=== PATIENT | female | born 1985 | race Caucasian/White ===

== ENCOUNTER → 2016-11-10 | Outpatient (CLI) | payer OTHER ==
[~2016-11-10] MED LIST: CEFD300C2 PO; DHA PO; PRENTAB26 PO; SLOW FE PO
== END | disposition home or self-care (01) ==
LOC: C.PAPS 09:11
PROVIDERS: ATTEND Obstetrics & Gynecology
DX: Z12.4 Encounter for screening for malignant neoplasm of cervix (principal)

== ENCOUNTER 2017-03-01 06:27 | Emergency (ER) | payer OTHER ==
[~2017-03-01] VITALS: Ht 149.9 cm; Wt 74.3 kg
[~2017-03-01 06:27] MED LIST changes: -CEFD300C2 PO
[2017-03-01 06:33] VITALS: TEMP 37; Ht 149.9 cm; Wt 74.3 kg
[2017-03-01] MEDS ORDERED: KETOROLAC TROMETHAMINE 30 MG/ML VIAL IV STA (06:53)
[2017-03-01] MEDS ORDERED: SODIUM CHLORIDE 0.9% 1000ML 500 ML IV STA (06:53)
[2017-03-01] MEDS ORDERED: ONDANSETRON INJ 2 MG/ML 2 ML VIAL IV STA (06:53)
--- NOTE | 2017-03-01 07:00 | EMERGENCY ROOM VISIT NOTE ---
History Report prepared by Jackie: Vickie Garcia Under the Supervision of: Dr. Jeb Tobias M.D. First contact with patient: 06:45 Chief Complaint: FLANK PAIN Stated Complaint: LWR BACK PAIN,CRAMPING,ITCHING LIKE INFECTION,CHIL History of Present Illness The patient is a 32 year old female who presents to the Emergency Room with complaints of right flank pain that began around 0300 this morning and continued to worsen. She currently rates her discomfort as a 6/10 in severity. The patient states that last night she began noticing vaginal itching, stating that she thought she was developing an early yeast infection. She states that she has had no vaginal discharge. The patient states that she continued with soreness and cramping to her right lower back and states that it began to radiate into her right side of her abdomen. She states that she then began with nausea and chills, but denies any urinary symptoms. The patient denies any personal or family history of kidney stones or infections. She reports a past medical history of a salivary gland infection 10 years ago. The patient denies any history of diabetes or lung disease, but reports a family history of diabetes. She denies any history of ovarian cysts. The patient states that her last normal menstrual cycle was last week, noting that it was the worst cramping she has ever had. She states that she has been off control since October. The patient denies any history of ovarian cysts. Source of History: patient Onset: 0300 this morning Position: other (right flank) Symptom Intensity: 6/10 Quality: cramping Timing: worsening, other (persistent) Associated Symptoms: + chills, + nausea Review of Systems See HPI for pertinent positives & negatives. A total of 10 systems reviewed and were otherwise negative. Past Medical & Surgical Medical Problems: (1) Salivary gland infection Family History Diabetes mellitus Social History Smoking Status: Never Smoker Marital Status: Housing Status: lives with significant other Occupation Status: employed Current/Historical Medications Scheduled Cefdinir (Omnicef), 300 MG PO Q12H Multivit/Min/Iron/Fol Ac/Pren ( Vitamin), 1 TAB PO DAILY Allergies Coded Allergies: No Known Allergies (Unverified , 03/01/17) Physical Exam Vital Signs Date Time Temp Pulse Resp B/P (MAP) Pulse Ox O2 Delivery O2 Flow Rate FiO2 03/01/17 09:16 82 18 135/88 96 03/01/17 06:33 37.0 79 18 164/104 99 Room Air Physical Exam GENERAL: Patient is in no acute distress. HEENT: No acute trauma, normocephalic atraumatic, mucous membranes moist, no nasal congestion, no scleral icterus. NECK: No stridor, no adenopathy, no meningismus, trachea is midline. LUNGS: Clear to auscultation bilaterally, no wheeze, no rhonchi, breath sounds equal. HEART: Without murmurs gallops or rubs, regular rate and rhythm. ABDOMEN: Soft, Tender along the entire right side, bowel sounds positive, no hernias, no peritonitis. BACK: Mild right flank discomfort with percussion EXTREMITIES: No cyanosis or edema, full range of motion of all the joints without pain or difficulty, no signs for acute trauma. NEUROLOGIC: Oriented x 3, no acute motor or sensory deficits, no focal weakness. SKIN: No rash, no jaundice, no diaphoresis. Medical Decision & Procedures ER Provider Diagnostic Interpretation: CT results as stated below per my review and radiologist interpretation: ABD/PELVIS WITHOUT FOR STONE HISTORY: 32 years-old Female EVALUATE FLANK PAIN/HEMATURIA acute right-sided flank pain with hematuria. Initial exam. COMPARISON: None available. TECHNIQUE: Multiple axial CT images of the abdomen and pelvis were obtained without IV contrast. A dose lowering technique was used consistent with the principals of ALARA. FINDINGS: Lung bases are generally clear. There is no pneumoperitoneum identified. The imaged inferior cardiac chambers are unremarkable. The liver, spleen, pancreas, gallbladder and adrenal glands are within normal limits. There is mild dilation with surrounding inflammatory stranding of the right ureter without significant right-sided hydronephrosis identified. No obstructing stone or mass is seen. Left kidney, left ureter, urinary bladder and adnexa are unremarkable. The abdominal aorta is normal in both course and caliber. There is no bulky retroperitoneal adenopathy. There is no bowel obstruction or focal bowel wall thickening identified. The colon and appendix are within normal limits. Soft tissues are unremarkable. Bones appear intact. IMPRESSION: 1. Mild dilation with surrounding inflammatory stranding of the right ureter without obstructing stone identified. Findings may be secondary to recently passed stone or ascending infection. 2. Normal CT appearance of the appendix. The above report was generated using voice recognition software. It may contain grammatical, syntax or spelling errors. Electronically signed by: Duke Winkler M.D. 03/01/2017 7:46 AM Dictated Date/Time: 03/01/2017 7:40 AM Laboratory Results 03/01/17 07:05 Red Blood Count 4.71, Mean Corpuscular Volume 85.6, Mean Corpuscular Hemoglobin 29.5, Mean Corpuscular Hemoglobin Concent 34.5, Mean Platelet Volume 8.5, Neutrophils (%) (Auto) 71.5, Lymphocytes (%) (Auto) 21.6, Monocytes (%) (Auto) 4.8, Eosinophils (%) (Auto) 1.7, Basophils (%) (Auto) 0.2, Neutrophils # (Auto) 7.00, Lymphocytes # (Auto) 2.11, Monocytes # (Auto) 0.47, Eosinophils # (Auto) 0.17, Basophils # (Auto) 0.02 03/01/17 07:05 Test 03/01/17 06:40 03/01/17 07:05 Urine Color YELLOW Urine Appearance CLOUDY (CLEAR) Urine pH 6.5 (4.5-7.5) Urine Specific [place] 1.018 (1.000-1.030) Urine Protein 2+ (NEG) Urine Glucose (UA) NEG (NEG) Urine Ketones NEG (NEG) Urine Occult Blood 2+ (NEG) Urine Nitrite POS (NEG) Urine Bilirubin NEG (NEG) Urine Urobilinogen NEG (NEG) Urine Leukocyte Esterase LARGE (NEG) Urine WBC (Auto) >30 /hpf (0-5) Urine RBC (Auto) >30 /hpf (0-4) Urine Hyaline Casts (Auto) 1-5 /lpf (0-5) Urine Epithelial Cells (Auto) >30 /lpf (0-5) Urine Bacteria (Auto) 2+ (NEG) White Blood Count 9.79 K/uL (4.8-10.8) Red Blood Count 4.71 M/uL (4.2-5.4) Hemoglobin 13.9 g/dL (12.0-16.0) Hematocrit 40.3 % (37-47) Mean Corpuscular Volume 85.6 fL (80-100) Mean Corpuscular Hemoglobin 29.5 pg (25-34) Mean Corpuscular Hemoglobin Concent 34.5 g/dl (32-36) Platelet Count 219 K/uL (130-400) Mean Platelet Volume 8.5 fL (7.4-10.4) Neutrophils (%) (Auto) 71.5 % Lymphocytes (%) (Auto) 21.6 % Monocytes (%) (Auto) 4.8 % Eosinophils (%) (Auto) 1.7 % Basophils (%) (Auto) 0.2 % Neutrophils # (Auto) 7.00 K/uL (1.4-6.5) Lymphocytes # (Auto) 2.11 K/uL (1.2-3.4) Monocytes # (Auto) 0.47 K/uL (0.11-0.59) Eosinophils # (Auto) 0.17 K/uL (0-0.5) Basophils # (Auto) 0.02 K/uL (0-0.2) RDW Standard Deviation 39.9 fL (36.4-46.3) RDW Coefficient of Variation 12.7 % (11.5-14.5) Immature Granulocyte % (Auto) 0.2 % Immature Granulocyte # (Auto) 0.02 K/uL (0.00-0.02) Anion Gap 10.0 mmol/L (3-11) Est Creatinine Clear Calc Drug Dose 125.7 ml/min Estimated GFR () 143.2 Estimated GFR (Non- 123.5 BUN/Creatinine Ratio 16.1 (10-20) Calcium Level 9.1 mg/dl (8.5-10.1) Total Bilirubin 0.5 mg/dl (0.2-1) Aspartate Amino Transf (AST/SGOT) 19 U/L (15-37) Alanine Aminotransferase (ALT/SGPT) 22 U/L (12-78) Alkaline Phosphatase 53 U/L (45-117) Total Protein 7.6 gm/dl (6.4-8.2) Albumin 3.8 gm/dl (3.4-5.0) Globulin 3.8 gm/dl (2.5-4.0) Albumin/Globulin Ratio 1.0 (0.9-2) Lipase 86 U/L (73-393) Human Chorionic Gonadotropin, Qual NEG (NEG) Laboratory results reviewed by me. Medications Administered Medications (Trade) Dose Ordered Sig/Felicita Route Start Time Stop Time Status Last Admin Dose Admin Sodium Chloride 500 ml @ 999 mls/hr Q31M STAT IV 03/01/17 06:53 03/01/17 07:23 DC 03/01/17 06:53 999 MLS/HR Ondansetron HCl (Zofran Inj) 4 mg NOW STAT IV 03/01/17 06:53 03/01/17 06:54 DC 03/01/17 07:12 4 MG Ketorolac Tromethamine (Toradol Inj) 30 mg NOW STAT IV 03/01/17 06:53 03/01/17 06:54 DC 03/01/17 07:12 30 MG Ceftriaxone Sodium (Rocephin Inj) 1 gm NOW STAT IV 03/01/17 07:24 03/01/17 07:25 DC 03/01/17 07:29 1 GM ED Course 0649: The patient was evaluated in room B3B. A complete history and physical exam was performed. 0653: Ordered Toradol Inj 30 mg IV, Zofran Inj 4 mg IV, Sodium Chloride 500 ml @ 999 mls/hr IV. 0724: Ordered Rocephin Inj 1 gm IV. 0822: I reevaluated the patient and she is resting comfortably. I discussed the exam findings with her and I discussed the treatment plan. She verbalized complete understanding and agreement. She is ready to go home. Medical Decision The patient is a 32 year old female who presents to the ED with complaints of right flank pain. Differential diagnoses considered include pyelonephritis, ovarian cyst, appendicitis, pancreatitis, biliary colic, renal colic, , musculoskeletal pain, renal failure. There is no leukocytosis or concerning anemia. No significant electrolyte abnormality, kidney failure or hepatitis. There is no pancreatitis. Urinalysis shows evidence for infection, urine culture is pending. testing is negative. Abdominal and pelvis CT suggests a possible pyelonephritis. The patient received IV saline, IV Toradol and IV Zofran, she was given IV ceftriaxone. The patient is doing well. She is being discharged home on antibiotics for her pyelonephritis. She should return if worsening. Medication Reconcilliation Current Medication List: was personally reviewed by me Impression Primary Impression: Right flank pain Additional Impression: Pyelonephritis Scribe Attestation The scribe's documentation has been prepared under my direction and personally reviewed by me in its entirety. I confirm that the note above accurately reflects all work, treatment, procedures, and medical decision making performed by me. Departure Information Dispostion Home / Self-Care Prescriptions Cefdinir (OMNICEF) 300 Mg Cap 300 MG PO Q12H for 10 Days, #20 CAP Prov: Jeb Tobias M.D. 03/01/17 Referrals Chaz Bryson M.D. (PCP) Forms HOME CARE DOCUMENTATION FORM, IMPORTANT VISIT INFORMATION Patient Instructions My [facility] Additional Instructions fluids rest motrin and or tylenol for pain omnicef 2x per day for 10 days return for vomiting or if worsening see edward wong for a recheck this week Problem Qualifiers
[2017-03-01 07:13] LABS: URINE APPEARANCE CLOUDY (CLEAR); URINE BILIRUBIN NEG (NEG); URINE COLOR YELLOW; URINE EPITHELIAL CELL AUTO >30 /lpf (0-5); URINE NITRITE POS (NEG); URINE PH 6.5 (4.5-7.5); URINE SPECIFIC GRAVITY 1.018 (1.000-1.030); UROBILINOGEN NEG (NEG); ZZUR CULT IF INDIC CLEAN CATCH YES
[2017-03-01 07:16] LABS: BASO % 0.2 %; BASO ABS # 0.02 K/uL (0-0.2); COMPLETE YES; EOS % 1.7 %; HEMATOCRIT 40.3 % (37-47); IG% 0.2 %; LYMPH % 21.6 %; LYMPH ABS # 2.11 K/uL (1.2-3.4); MEAN CELL VOLUME 85.6 fL (80-100); MEAN CORPUSCULAR HEMOGLOBIN 29.5 pg (25-34); MEAN CORPUSCULAR HGB CONC 34.5 g/dl (32-36); MEAN PLATELET VOLUME 8.5 fL (7.4-10.4); MONO % 4.8 %; NEUT % 71.5 %; PLATELET COUNT 219 K/uL (130-400); RED BLOOD COUNT 4.71 M/uL (4.2-5.4); WHITE BLOOD COUNT 9.79 K/uL (4.8-10.8)
[2017-03-01 07:18] LABS: MANUAL MICROSCOPIC REQUIRED? NO; REVIEW REQ? NO
[2017-03-01] MEDS ORDERED: CEFTRIAXONE SOD INJ 1 GM ADDVIAL IV STA (07:24)
[2017-03-01 07:35] LABS: BUN/CREATININE RATIO 16.1 (10-20); CALCIUM 9.1 mg/dl (8.5-10.1); CREATININE 0.57 mg/dl (0.60-1.20); POTASSIUM 3.4 mmol/L (3.5-5.1)
[2017-03-01 07:39] LABS: PREG INTERNAL NEGATIVE QC NEG CLEAR BACKGROUND; PREG INTERNAL POSITIVE QC POS CONTROL LINE
--- NOTE | 2017-03-01 07:47 | DIAGNOSTIC IMAGING REPORT ---
ABD/PELVIS WITHOUT FOR STONE HISTORY: 32 years-old Female EVALUATE FLANK PAIN/HEMATURIA acute right-sided flank pain with hematuria. Initial exam. COMPARISON: None available. TECHNIQUE: Multiple axial CT images of the abdomen and pelvis were obtained without IV contrast. A dose lowering technique was used consistent with the principals of JUDITH. FINDINGS: Lung bases are generally clear. There is no pneumoperitoneum identified. The imaged inferior cardiac chambers are unremarkable. The liver, spleen, pancreas, gallbladder and adrenal glands are within normal limits. There is mild dilation with surrounding inflammatory stranding of the right ureter without significant right-sided hydronephrosis identified. No obstructing stone or mass is seen. Left kidney, left ureter, urinary bladder and adnexa are unremarkable. The abdominal aorta is normal in both course and caliber. There is no bulky retroperitoneal adenopathy. There is no bowel obstruction or focal bowel wall thickening identified. The colon and appendix are within normal limits. Soft tissues are unremarkable. Bones appear intact. IMPRESSION: 1. Mild dilation with surrounding inflammatory stranding of the right ureter without obstructing stone identified. Findings may be secondary to recently passed stone or ascending infection. 2. Normal CT appearance of the appendix. The above report was generated using voice recognition software. It may contain grammatical, syntax or spelling errors. Electronically signed by: Duke Winkler M.D. 03/01/2017 7:46 AM Dictated Date/Time: 03/01/2017 7:40 AM
[2017-03-01] MEDS ORDERED: CEFD300C2 PO (08:26)
[2017-03-01 09:16] VITALS: BP 135/88; PULSE 82; O2SAT 96
--- NOTE | 2017-03-03 12:27 | Pharmacy Progress Note ---
ED Pharmacist Culture FollowUp Date of Service: Mar 03, 2017. Patient was sent home with a prescription for Cefdinir 300mg PO BID x 10 days for pyelonephritis, which should cover the e coli growing from the patient's URINE culture.
== END 2017-03-01 09:18 | disposition home or self-care (01) ==
LOC: C.EDB 06:28
DX: N12 Tubulo-interstitial nephritis, not specified as acute or chronic (principal); R10.9 Unspecified abdominal pain; M54.5 Low back pain; L29.2 Pruritus vulvae

== ENCOUNTER 2020-02-11 07:53 | Inpatient (IN) ==
[2020-02-11] MEDS ORDERED: OXYTOCIN 30 UNITS/500 ML BAG IV PRN ×2 (08:09→08:10)
[2020-02-11 08:39] LABS: Hematocrit (blood only) 34.4 % (37-47); Hemoglobin 11.7 g/dL (12.0-16.0); Mean Corpuscular Hemoglobin 28.1 pg (25-34); Mean Corpuscular Volume 82.5 fL (80-100); Mean Platelet Volume 9.4 fL (7.4-10.4); Platelet Count 208 K/uL (130-400); RDW Coefficient of Variation 13.7 % (11.5-14.5); Red Blood Count 4.17 M/uL (4.2-5.4); White Blood Count 10.39 K/uL (4.8-10.8)
[2020-02-11] MEDS: LACTATED RINGER'S 1,000 ML IV PRN ×3 (08:55→22:10)
[2020-02-11 09:15] LABS: Albumin Level 2.4 gm/dl (3.4-5.0); BUN Creatinine Ratio 16.9 (10-20); Calcium 9.1 mg/dl (8.5-10.1); Est GFR (African American) 148.3; Potassium 3.6 mmol/L (3.5-5.1)
[2020-02-11 09:18] LABS: Albumin Globulin Ratio 0.6 (0.9-2); Bilirubin,Total 0.2 mg/dl (0.2-1); Total Protein 6.4 gm/dl (6.4-8.2)
--- NOTE | 2020-02-11 09:25 | Medical Student H&P ---
Date of Service February 11, 2020 Assessment & Plan (1) : Induction using pitocin. Patient elected to receive an epidural for pain management. Artificial rupture of membranes would be performed via amniotomy. Category I (2) Insulin controlled gestational diabetes mellitus (GDM) during , antepartum: Blood sugars would be checked hourly throughout the course of labor. (3) Encounter for supervision of normal in multigravida: Patient would be regularly monitored throughout the course of her labor and delivery. Admission and Anticipated Discharge Date Admission Date: February 11, 2020 History of Present Illness Chief Complaint: Patient is presenting for a scheduled induction and delivery. Primary Care Provider: Patient is 35 year old female currently at 40 weeks of estimated gestational age by last menstrual period consistent with first trimester ultrasound presenting for a scheduled induction and delivery due to insulin dependent gestational diabetes mellitus. She states that her course has been generally uncomplicated so far with the exception of a diagnosis of gestational diabetes mellitus for which she takes an evening dose of insulin. Patient had an elevated fasting glucose as well as a positive 1-hour and 2-hour glucose test at 16 weeks. Patient has received appropriate immunizations for her chronological age and her current Group B strep status is negative. testing for HIV, Hep B surface antigen, chlamydia, gonorrhea and syphilis were negative. Patient had a positive rubella IgG titer. Patient's blood type is A positive. Patient has received 2 COVID-19 tests which have both been negative. Second trimester quad test showed no abnormalities. Patient is currently experiencing intermittent contractions and can feel movement but denies any bleeding of leaking of fluid. Patient will undergo an induced delivery and opted to receive an epidural block for pain management. Allergies Allergy/AdvReac Type Severity Reaction Status Date / Time No Known Allergies Allergy Verified 02/08/20 13:34 Home Medications Home Medications Medication Instructions Recorded Confirmed Type prenat.vits,ijeoma,lho-eebd-ijbes 1 tab PO DAILY 07/09/19 02/11/20 History acetone (urine) test #50 ea 09/18/19 02/08/20 Rx blood sugar diagnostic #150 ea 09/18/19 02/08/20 Rx blood-glucose meter #1 ea 09/18/19 02/08/20 Rx lancets 33 gauge #150 ea 09/18/19 02/08/20 Rx pen needle, diabetic 32 gauge x #50 ea 12/11/19 02/08/20 Rx " insulin NPH isoph U-100 human 100 30 unit SQ QPM #15 ml 01/11/20 02/11/20 Rx unit/mL (3 mL) subcutaneous pen cetirizine [Zyrtec] 10 mg PO DAILY 02/11/20 02/11/20 History famotidine [Pepcid AC] 10 mg PO DAILY PRN 02/11/20 02/11/20 History fluticasone propionate [Flonase] 1 spray INTRANASAL DAILY PRN 02/11/20 02/11/20 History Patient History Medical History (Updated 02/11/20 @ 14:29 by Mariah Moya MD, FACOG) Diet controlled gestational diabetes mellitus (GDM), antepartum Eczema Fibroids History of chicken pox Surgical History History of open heart surgery ASD repair 1990 S/P wisdom tooth extraction Family History Mother Diabetes Hypertension Social History Smoking Status: Former smoker Smoking End Date: 1 year ago; Hx Alcohol Use: No Hx Substance Use: No Preferred Language: Yakut Communication Ability: Effective Clinical Team Lead Required: No Beliefs That Will Affect Care: None marital status: marital status details: Pierre Kelly (35) [phone] Current Living Situation: Spouse Current Living Situation Comment: lives with spouse, daughter, dogs 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 OB History Patients has had 3 pregnancies. G1- resulted in an induced . G2- resulted in an term delivery of a 7lb girl via spontaenous vaginal delivery. course was complicated by oligohydraminos. Daughter had an ASD which spontaneously resolved on 3 days after delivery. 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 Her last pap smear done in November 2018 which showed benign findings. Patient has no history of abnormal pap smears or sexually transmitted diseases. Review of Systems Patient appears in no acute distress and is comfortable in her bed. No shortness of breath Additional Comments: No chest pain or palpitations. Patient states experience some mild leg swelling during the . Patient states experiencing mild acid reflux after meals on some occasions. No abdominal pains or change in her stool quality/frequency. Patients states experiencing mild itching due to her seasonal eczema which has been resolved since switching bathing soap. Physical Exam Constitutional: WD/WN, vitals as above Patient appears comfortable and in no acute distress Neck: normal visual inspection Respiratory: normal respiratory effort, lungs clear to auscultation Auscultation: lungs clear to auscultation bilaterally Cardiovascular: Rate/Rhythm: regular rate and regular rhythm Heart Sounds: normal S1 and normal S2 Extremities: + pedal edema (+1, bilateral edema up to the ankles. ) Gastrointestinal (Abdomen): non-tender Psychiatric: A+Ox3, euthymic affect Genitourinary: Manual OB Exam: + cervical dilation 3 cm, + cervical effacement 50% and + station -[address] Mariah Moya Monitoring External Monitor EFM--baseline 150-155 bpm, moderate variability, presence of accelerations and absence of late or variable decelerations. Tocodynamometer Rare contractions Results & Data ([facility]) Vital Signs (Past 12 Hours) Vital Signs Temp Pulse Resp BP 02/11/20 08:33 82 196/88 H 02/11/20 08:32 82 208/101 H 02/11/20 08:16 80 180/89 H 02/11/20 08:11 37.0 C 80 20 180/89 H 02/11/20 07:59 73 165/77 H
[2020-02-11] MEDS ORDERED: LABETALOL HCL IV 5 MG/ML 20ML IV STA (10:16)
--- NOTE | 2020-02-11 10:21 | Communication Note ---
Date of Service: February 11, 2020 Repeat blood pressure is 182/80. Patient has no s/s of pet, labs are all normal, urine dips negative. The only abnl is blood pressure. Plan to treat with one dose of IV labetolol. If that takes care of it, will just monitor. If continues to have elevated blood pressures, will probably need to start mag for ghtn. Will continue to monitor blood sugars and blood pressures closely. fetus categoyr one.
[2020-02-11] MEDS ORDERED: MAG SULFATE 6GM BOLUS FROM BAG IV ONE (13:10)
[2020-02-11] MEDS: MAGNESIUM SULFATE / WTR 40 GM/1,000 ML BAG IV SCH (13:31)
--- NOTE | 2020-02-11 14:21 | History & Physical Report ---
Date of Service February 11, 2020 Assessment & Plan (1) Insulin controlled gestational diabetes mellitus (GDM) during , antepartum: Plan to check blood sugars hourly to q 2 hrs. Plan to keep bs 70-120 and add insulin or D5 if needed. (2) Gestational hypertension without significant proteinuria during in third trimester, antepartum: Developed elevated blood pressures while watching today. this is the first time the pressure has been elevated. Labs are all normal. NO s/s of PET. Pressures as high as 180s/90s. Gave one dose of labetolol and had a bit of response but short-lived. Plan to start Magnesium prophylaxis for seizure prevention. Will continue to watch pressures closely. Labetolol of needed. Plan pitocin induction. Arom as indicated. epidural on demand. Fetus category one. Anticipate . Admission and Anticipated Discharge Date Admission Date: February 11, 2020 History of Present Illness Chief Complaint: induction Primary Care Provider: NO PCP (late entry) Patient is a who presents to labor and delivery for induction of labor at 40 weeks by lmp and first trimester ultrasound for insulin requiring gdm. GDM diagnosed at 16 weeks. Taking insulin at night. Last US at 36 weeks showed efw 21% and AC 34%. Patient has a hx of cardiac anomaly that was repaired, ASD. echo normal. labs--A+/ab-/ri/rprnr/hepb-/hiv-/gc/ct-/16 week gtt 155/ failed 2 hr gtt/ neg QS, gbs neg, covid neg 02/04. Allergies Allergy/AdvReac Type Severity Reaction Status Date / Time No Known Allergies Allergy Verified 02/08/20 13:34 Home Medications Home Medications Medication Instructions Recorded Confirmed Type prenat.vits,ijeoma,dbp-gpmz-hjqdn 1 tab PO DAILY 07/09/19 02/11/20 History acetone (urine) test #50 ea 09/18/19 02/08/20 Rx blood sugar diagnostic #150 ea 09/18/19 02/08/20 Rx blood-glucose meter #1 ea 09/18/19 02/08/20 Rx lancets 33 gauge #150 ea 09/18/19 02/08/20 Rx pen needle, diabetic 32 gauge x #50 ea 12/11/19 02/08/20 Rx 5/32" insulin NPH isoph U-100 human 100 30 unit SQ QPM #15 ml 01/11/20 02/11/20 Rx unit/mL (3 mL) subcutaneous pen cetirizine [Zyrtec] 10 mg PO DAILY 02/11/20 02/11/20 History famotidine [Pepcid AC] 10 mg PO DAILY PRN 02/11/20 02/11/20 History fluticasone propionate [Flonase] 1 spray INTRANASAL DAILY PRN 02/11/20 02/11/20 History Patient History Medical History Diet controlled gestational diabetes mellitus (GDM), antepartum Eczema Fibroids History of chicken pox Surgical History History of open heart surgery ASD repair 1990 S/P wisdom tooth extraction Family History Mother Diabetes Hypertension Social History Smoking Status: Former smoker Smoking End Date: 1 year ago; Hx Alcohol Use: No Hx Substance Use: No Preferred Language: Angolan Communication Ability: Effective Surgical Device Sales Representative Required: No Beliefs That Will Affect Care: None marital status: marital status details: Pierre Kelly (35) [phone] Current Living Situation: Spouse Current Living Situation Comment: lives with spouse, daughter, dogs 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[employer] Other Information That Helps Us Care for You: No Feels Safe at Home: Yes Safety Concerns: Feels Safe At This Time OB History g1--01/02, eab g2--, 40 weeks, 7#6oz, female, 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 Results & Data ([facility]) Vital Signs (Past 12 Hours) Vital Signs Temp Pulse Resp BP Pulse Ox 02/11/20 14:16 79 97 02/11/20 14:13 79 177/85 H 02/11/20 14:11 79 98 02/11/20 13:58 76 158/74 H 02/11/20 13:57 79 97 02/11/20 13:52 78 128/57 L 96 02/11/20 13:47 79 131/61 96 02/11/20 13:42 85 97 02/11/20 13:41 91 H 136/68 02/11/20 13:37 83 97 02/11/20 13:33 78 158/80 H 02/11/20 13:29 75 186/86 H 02/11/20 13:24 74 188/80 H 02/11/20 13:18 76 158/78 H 02/11/20 13:15 92 H 189/94 H 02/11/20 13:03 65 175/89 H 02/11/20 12:58 77 152/71 H 02/11/20 12:52 80 145/68 H 02/11/20 12:48 70 147/65 H 02/11/20 12:42 84 135/68 02/11/20 12:39 81 136/70 02/11/20 12:36 85 137/72 02/11/20 12:33 77 139/67 02/11/20 12:30 79 152/73 H 02/11/20 12:22 71 170/86 H 02/11/20 12:16 73 185/86 H 02/11/20 11:41 68 167/82 H 02/11/20 11:08 67 163/77 H 02/11/20 11:06 75 192/95 H 02/11/20 10:22 55 L 157/74 H 02/11/20 10:14 69 182/80 H 02/11/20 09:18 70 164/81 H 02/11/20 08:33 82 196/88 H 02/11/20 08:32 82 208/101 H 02/11/20 08:16 80 180/89 H 02/11/20 08:11 37.0 C 80 20 180/89 H 02/11/20 07:59 73 165/77 H Coding Level of Care Code None Diagnoses Insulin controlled gestational diabetes mellitus (GDM) during , antepartum O24.414 Gestational hypertension without significant proteinuria during in third trimester, antepartum O13.3
[2020-02-11] MEDS ORDERED: BUPIVACAINE 0.25% 30 ML VIAL ONE ×2 (15:15→21:35)
[2020-02-11] MEDS ORDERED: ePHEDrine sulfate 50 MG/ML AMP ONE (15:15)
[2020-02-11] MEDS ORDERED: fentaNYL citrate 100 MCG/2 ML VIAL ONE ×2 (15:15→21:51)
[2020-02-11] MEDS ORDERED: fentaNYL 2MCG/ML ROPIV 1.25MG/ML 100 ML BAG EPI ONE (15:16)
[2020-02-11] MEDS ORDERED: fentaNYL 2MCG/ML ROPIV 1.25MG/ML 100 ML BAG EPI PRN (15:43)
[2020-02-11] MEDS ORDERED: ePHEDrine sulfate 50 MG/ML AMP IV PRN (15:43)
[2020-02-11] MEDS ORDERED: NALOXONE HCL 0.4 MG/1 ML VIAL/CARP IV PRN (15:43)
[2020-02-11] MEDS ORDERED: DiphenhydrAMINE HCL 50 MG/ML VIAL IV PRN (15:43)
[2020-02-11] MEDS ORDERED: NALOXONE HCL 1 MG in SODIUM CHLORIDE 0.9% 1000ML 1,000 ML IV PRN (15:43)
[2020-02-11] MEDS ORDERED: ONDANSETRON INJ 2 MG/ML 2 ML VIAL IV PRN (15:43)
--- NOTE | 2020-02-11 15:43 | Anesthesiology Consultation ---
Date of Service February 11, 2020 Assessment & Plan (1) Encounter for pre-operative examination: Chart Review Chart Review: Patient NOT seen in Pre Admission Testing and Acceptable Risk for Labor Epidural Consults Requested none ASA ASA3 Proposed Anesthesia Anesthesia Type: Labor Epidural Risk / Benefits Reviewed With: PT / POA / Parent / Guardian, Accepts Plan and Informed Consent Obtained History Height/Weight Height: 5 ft Weight: 86.183 kg Allergies Allergy/AdvReac Type Severity Reaction Status Date / Time No Known Allergies Allergy Verified 02/08/20 13:34 Medications Home Medications Medication Instructions Recorded Confirmed Last Taken prenat.vits,ijeoma,ltq-jqrz-sodzy 1 tab PO DAILY 07/09/19 02/11/20 02/10/20 22:30 acetone (urine) test #50 ea 09/18/19 02/08/20 Unknown blood sugar diagnostic #150 ea 09/18/19 02/08/20 Unknown blood-glucose meter #1 ea 09/18/19 02/08/20 Unknown lancets 33 gauge #150 ea 09/18/19 02/08/20 Unknown pen needle, diabetic 32 gauge x #50 ea 12/11/19 02/08/20 Unknown 5/32" insulin NPH isoph U-100 human 100 30 unit SQ QPM #15 ml 01/11/20 02/11/20 02/10/20 22:30 unit/mL (3 mL) subcutaneous pen cetirizine [Zyrtec] 10 mg PO DAILY 02/11/20 02/11/20 02/10/20 08:30 famotidine [Pepcid AC] 10 mg PO DAILY PRN 02/11/20 02/11/20 02/09/20 21:00 fluticasone propionate [Flonase] 1 spray INTRANASAL DAILY PRN 02/11/20 02/11/20 02/11/20 06:30 Active Medications Generic Name Dose Route Start Last Admin Trade Name Freq PRN Reason Stop Dose Admin Lactated Ringer's 1,000 mls @ 125 mls/hr 02/11/20 08:09 02/11/20 16:11 Lr IV 02/13/20 08:08 75 mls/hr .Q8H PRN Infusion L&D Protocol Protocol Oxytocin 30 units in 500 mls @ 15 mls/hr 02/11/20 08:10 02/11/20 14:45 Pitocin IV 02/13/20 08:09 0.9 units/hr .Q24H PRN 15 mls/hr Labor Induction/Augmentation Titration Protocol 0.9 UNITS/HR Magnesium Sulfate 40 gm in 1,000 mls @ 50 mls/hr 02/11/20 13:15 02/11/20 13:47 Magnesium Sulfate / Wtr IV 03/12/20 13:14 50 mls/hr .Q20H ALEJO Infusion NPO Date Last Intake of Fluids: 02/11/20 Time Last Intake of Fluids: 15:38 Date Last Intake of Solids: 02/11/20 Time Last Intake of Solids: 07:00 Past Medical History Medical History Diet controlled gestational diabetes mellitus (GDM), antepartum Eczema Fibroids History of chicken pox Exercise / Class Metabolic Activity II 4-5 Yardwork/Stairs/Walk up hill Past Family History Family History Mother Diabetes Hypertension Past Surgical History Surgical History History of open heart surgery ASD repair 1990 S/P wisdom tooth extraction Past Anesthesia History No Hx of Anesthesia Complications History of PONV No Hx of PONV Social History Smoking Status: Former smoker tobacco type: cigarettes Smoking End Date: 1 year ago Hx Alcohol Use: No Hx Substance Use: No Review of Systems Negative for chest pain or shortness of breath. Patient denies active symptoms of GERD. Patient denies history of abnormal bleeding or bleeding disorder. Patient denies active use of anticoagulants other than low dose aspirin. Patient denies numbness, tingling or weakness in lower extremities. Physical Exam Vital Signs Last Vital Signs Temp 37.0 C 02/11/20 08:11 Pulse 83 02/11/20 15:32 Resp 20 02/11/20 08:11 BP 179/87 H 02/11/20 15:28 Pulse Ox 100 02/11/20 15:32 Constitutional not obese (gravid uterus) ENMT Mouth: no TMJ abnormality and oral opening not small Thyromental Distance: > or= 3.5 Finger Breadths Mallampati Class: III Neck normal visual inspection; neck extension not limited Respiratory normal respiratory effort Auscultation: lungs clear to auscultation bilaterally Cardiovascular Rate/Rhythm: regular rate and regular rhythm Heart Sounds: no murmur Neurologic moves all extremities Motor/Sensory: + sensory deficit (right arm) Psychiatric Orientation: alert and oriented x 3 Testing Laboratory Results 02/11/20 08:22 02/11/20 08:44 02/11/20 02/11/20 02/11/20 14:13 12:21 11:18 POC Glucose 76 77 79 02/11/20 02/11/20 02/11/20 10:15 09:15 08:13 POC Glucose 87 94 122 H
--- NOTE | 2020-02-11 17:34 | Labor Progress Brief Note ---
Date of Service February 11, 2020 Subjective comfortable after epidural Assessment & Plan (1) Gestational hypertension without significant proteinuria during in third trimester, antepartum: Pressures better, continue mag (2) Insulin controlled gestational diabetes mellitus (GDM) during , antepartum: sugars are wnl. continue to monitor. Admission and Anticipated Discharge Date Admission Date: February 11, 2020 Physical Exam Constitutional: WD/WN, vitals as above Psychiatric: A+Ox3, euthymic affect Genitourinary: cx--4-5/75/-2 toco--q2-4min, pit at 15 efm--130s wtih mod variability, accels to 150s, no decels Results & Data ([facility]) Vital Signs (Past 12 Hours) Vital Signs Temp Pulse Resp BP Pulse Ox 02/11/20 17:27 92 H 99 02/11/20 17:22 86 98 02/11/20 17:17 81 98 02/11/20 17:15 84 157/80 H 02/11/20 17:12 86 98 02/11/20 17:10 88 167/85 H 02/11/20 17:07 86 98 02/11/20 17:06 90 161/86 H 02/11/20 17:02 88 99 02/11/20 17:00 97 H 159/81 H 02/11/20 16:57 90 99 02/11/20 16:55 94 H 157/81 H 02/11/20 16:52 91 H 99 02/11/20 16:48 80 136/67 02/11/20 16:47 85 98 02/11/20 16:45 88 139/74 02/11/20 16:42 86 143/77 H 98 02/11/20 16:39 85 140/74 02/11/20 16:37 79 98 02/11/20 16:36 82 133/75 02/11/20 16:33 93 H 146/76 H 02/11/20 16:32 82 98 02/11/20 16:30 88 147/76 H 02/11/20 16:27 97 H 155/78 H 98 02/11/20 16:24 87 156/81 H 02/11/20 16:22 106 H 161/81 H 99 02/11/20 16:17 89 98 02/11/20 16:12 90 191/86 H 98 09/14/20 16:07 79 98 20 16:02 86 99 1420 15:57 86 100 1420 15:52 88 99 1420 15:47 92 H 99 1420 15:43 89 171/87 H 1420 15:42 88 99 1420 15:37 78 99 1420 15:32 83 100 1420 15:28 81 179/87 H 1420 15:27 81 99 1420 15:22 83 99 1420 15:17 82 99 20 15:12 86 98 1420 15:11 90 163/92 H 20 15:07 87 100 20 14:57 81 162/90 H 20 14:56 81 98 20 14:51 81 99 20 14:46 82 99 02/11/20 14:42 80 183/88 H 02/11/20 14:41 81 99 20 14:36 81 99 20 14:31 78 99 20 14:26 78 161/82 H 99 02/11/20 14:21 84 98 02/11/20 14:16 79 97 02/11/20 14:13 79 177/85 H 20 14:11 79 98 20 13:58 76 158/74 H 1420 13:57 79 97 1420 13:52 78 128/57 L 96 02/11/20 13:47 79 131/61 96 1420 13:42 85 97 1420 13:41 91 H 136/68 1420 13:37 83 97 1420 13:33 78 158/80 H 1420 13:29 75 186/86 H 1420 13:24 74 188/80 H 1420 13:18 76 158/78 H 1420 13:15 92 H 189/94 H 1420 13:03 65 175/89 H 1420 12:58 77 152/71 H 1420 12:52 80 145/68 H 02/11/20 12:48 70 147/65 H 02/11/20 12:42 84 135/68 02/11/20 12:39 81 136/70 02/11/20 12:36 85 137/72 02/11/20 12:33 77 139/67 02/11/20 12:30 79 152/73 H 02/11/20 12:22 71 170/86 H 02/11/20 12:16 73 185/86 H 02/11/20 11:41 68 167/82 H 02/11/20 11:08 67 163/77 H 02/11/20 11:06 75 192/95 H 02/11/20 10:22 55 L 157/74 H 02/11/20 10:14 69 182/80 H 02/11/20 09:18 70 164/81 H 02/11/20 08:33 82 196/88 H 02/11/20 08:32 82 208/101 H 02/11/20 08:16 80 180/89 H 02/11/20 08:11 37.0 C 80 20 180/89 H 02/11/20 07:59 73 165/77 H Coding Level of Care Code None Diagnoses Gestational hypertension without significant proteinuria during in third trimester, antepartum O13.3 Insulin controlled gestational diabetes mellitus (GDM) during , antepartum O24.414
[2020-02-11] MEDS ORDERED: fentaNYL citrate 100 MCG/2 ML VIAL INJ ONE (21:55)
[2020-02-11] MEDS ORDERED: ePHEDrine sulfate 50 MG/ML SYR ONE (22:04)
--- NOTE | 2020-02-11 22:47 | Labor Progress Brief Note ---
Date of Service February 11, 2020 Subjective felling some pain low. epidural rebolused Assessment & Plan (1) Gestational hypertension without significant proteinuria during in third trimester, antepartum: bps stable. no worsening. continue mag. labor down, fetus category one but reassuring. (2) Insulin controlled gestational diabetes mellitus (GDM) during , antepartum: sugars meeting goals. Admission and Anticipated Discharge Date Admission Date: February 11, 2020 Physical Exam Constitutional: WD/WN, vitals as above Psychiatric: A+Ox3, euthymic affect Genitourinary: cx--rim/100/0 toco--q2-3min, pit at 21 efm--140s with mod variability, small accels, variables with contractions. [facility] & Data ([facility]) Vital Signs (Past 12 Hours) Vital Signs Temp Pulse Resp BP Pulse Ox 02/11/20 22:43 89 130/67 02/11/20 22:42 84 98 02/11/20 22:37 83 97 02/11/20 22:32 84 98 02/11/20 22:28 88 124/62 02/11/20 22:27 84 99 02/11/20 22:22 85 98 02/11/20 22:17 91 H 97 02/11/20 22:15 36.6 C 16 02/11/20 22:12 89 120/63 97 02/11/20 22:10 75 113/55 L 02/11/20 22:09 73 111/59 L 02/11/20 22:07 70 96 02/11/20 22:06 65 89/50 L 94 02/11/20 22:05 66 91/48 L 02/11/20 22:02 66 103/50 L 97 02/11/20 22:00 70 16 107/52 L 02/11/20 21:59 80 103/54 L 02/11/20 21:57 73 97 02/11/20 21:56 70 113/57 L 94 02/11/20 21:55 74 124/61 02/11/20 21:53 77 123/62 02/11/20 21:52 82 99 02/11/20 21:50 76 124/63 02/11/20 21:47 73 120/60 96 02/11/20 21:44 72 114/56 L 02/11/20 21:42 68 98 02/11/20 21:41 71 123/63 02/11/20 21:37 77 99 02/11/20 21:36 75 119/62 02/11/20 21:32 68 95 02/11/20 21:30 18 02/11/20 21:27 71 96 02/11/20 21:25 81 94 02/11/20 21:22 82 99 02/11/20 21:20 87 151/87 H 02/11/20 21:17 92 H 98 02/11/20 21:15 18 02/11/20 21:12 83 98 02/11/20 21:10 86 93 02/11/20 21:07 85 97 02/11/20 21:04 81 144/73 H 02/11/20 21:02 81 98 02/11/20 21:00 18 02/11/20 20:57 84 98 02/11/20 20:52 80 100 02/11/20 20:50 74 159/81 H 02/11/20 20:47 74 100 02/11/20 20:42 76 98 02/11/20 20:37 75 98 02/11/20 20:34 78 156/74 H 02/11/20 20:32 74 99 02/11/20 20:27 77 98 02/11/20 20:22 73 99 02/11/20 20:20 81 176/83 H 02/11/20 20:17 80 98 02/11/20 20:15 36.6 C 16 02/11/20 20:12 82 98 02/11/20 20:07 81 98 02/11/20 20:04 79 162/75 H 02/11/20 20:02 80 98 02/11/20 20:00 16 02/11/20 19:57 82 98 02/11/20 19:52 80 98 02/11/20 19:50 81 168/77 H 02/11/20 19:47 80 100 02/11/20 19:42 90 99 02/11/20 19:37 82 99 02/11/20 19:36 80 152/75 H 02/11/20 19:32 78 100 02/11/20 19:30 36.6 C 18 02/11/20 19:27 79 100 02/11/20 19:22 87 100 02/11/20 19:19 88 141/87 H 02/11/20 19:17 84 100 02/11/20 19:15 18 02/11/20 19:12 82 100 02/11/20 19:07 85 99 02/11/20 19:05 82 172/80 H 02/11/20 19:02 83 99 02/11/20 18:57 86 100 02/11/20 18:52 83 100 02/11/20 18:49 81 162/85 H 02/11/20 18:47 81 100 02/11/20 18:42 82 99 02/11/20 18:37 84 100 02/11/20 18:34 78 20 161/79 H 02/11/20 18:32 83 99 02/11/20 18:27 88 100 02/11/20 18:22 85 98 02/11/20 18:21 85 164/85 H 02/11/20 18:17 87 99 02/11/20 18:12 86 98 02/11/20 18:07 86 99 02/11/20 18:05 81 20 172/84 H 02/11/20 18:02 83 98 02/11/20 17:57 80 98 02/11/20 17:52 83 98 02/11/20 17:51 83 173/86 H 02/11/20 17:47 81 99 02/11/20 17:42 90 98 02/11/20 17:37 87 100 02/11/20 17:36 87 21 169/89 H 02/11/20 17:32 91 H 99 02/11/20 17:27 92 H 99 02/11/20 17:22 86 98 02/11/20 17:17 81 98 02/11/20 17:15 84 157/80 H 02/11/20 17:12 86 98 02/11/20 17:10 88 167/85 H 02/11/20 17:07 86 98 02/11/20 17:06 90 20 161/86 H 02/11/20 17:02 88 99 02/11/20 17:00 97 H 159/81 H 02/11/20 16:57 90 99 02/11/20 16:55 94 H 157/81 H 02/11/20 16:52 91 H 99 02/11/20 16:48 80 136/67 02/11/20 16:47 85 98 02/11/20 16:45 88 139/74 20 16:42 86 143/77 H 98 02/11/20 16:39 85 140/74 02/11/20 16:37 79 98 20 16:36 82 20 133/75 20 16:33 93 H 146/76 H 02/11/20 16:32 82 98 20 16:30 88 147/76 H 02/11/20 16:27 97 H 155/78 H 98 02/11/20 16:24 87 156/81 H 02/11/20 16:22 106 H 161/81 H 99 02/11/20 16:17 89 98 02/11/20 16:12 90 191/86 H 98 02/11/20 16:07 79 98 02/11/20 16:02 86 99 02/11/20 15:57 86 100 02/11/20 15:52 88 99 02/11/20 15:47 92 H 99 02/11/20 15:43 89 171/87 H 02/11/20 15:42 88 99 02/11/20 15:37 78 99 02/11/20 15:32 83 100 02/11/20 15:28 81 20 179/87 H 02/11/20 15:27 81 99 02/11/20 15:22 83 99 02/11/20 15:17 82 99 02/11/20 15:12 86 98 02/11/20 15:11 90 163/92 H 02/11/20 15:07 87 100 02/11/20 14:57 81 20 162/90 H 02/11/20 14:56 81 98 02/11/20 14:51 81 99 02/11/20 14:46 82 99 02/11/20 14:42 80 183/88 H 02/11/20 14:41 81 99 02/11/20 14:36 81 99 02/11/20 14:31 78 99 02/11/20 14:26 78 161/82 H 99 02/11/20 14:21 84 98 02/11/20 14:16 79 97 14 14:13 79 18 177/85 H 02/11/20 14:11 79 98 14 13:58 76 158/74 H 02/11/20 13:57 79 97 02/11/20 13:52 78 128/57 L 96 02/11/20 13:47 79 131/61 96 02/11/20 13:42 85 97 02/11/20 13:41 91 H 136/68 02/11/20 13:37 83 97 02/11/20 13:33 78 158/80 H 02/11/20 13:29 75 186/86 H 02/11/20 13:24 74 188/80 H 02/11/20 13:18 76 20 158/78 H 02/11/20 13:15 92 H 189/94 H 02/11/20 13:03 65 175/89 H 02/11/20 12:58 77 152/71 H 02/11/20 12:52 80 145/68 H 02/11/20 12:48 70 147/65 H 02/11/20 12:42 84 135/68 02/11/20 12:39 81 136/70 02/11/20 12:36 85 137/72 02/11/20 12:33 77 139/67 02/11/20 12:30 79 18 152/73 H 02/11/20 12:22 71 170/86 H 02/11/20 12:16 73 185/86 H 02/11/20 11:41 68 20 167/82 H 02/11/20 11:08 67 163/77 H 02/11/20 11:06 75 192/95 H Coding Level of Care Code None Diagnoses Gestational hypertension without significant proteinuria during in third trimester, antepartum O13.3 Insulin controlled gestational diabetes mellitus (GDM) during , antepartum O24.414
--- NOTE | 2020-02-11 23:36 | Labor Progress Brief Note ---
Date of Service February 11, 2020 Subjective Pushing about 15 min, felt alot of pressure and wanted to push Assessment & Plan (1) Insulin controlled gestational diabetes mellitus (GDM) during , antepartum: Admission and Anticipated Discharge Date Admission Date: February 11, 2020 pushing with good effort. Fetus overall reassuring with pushing. suspect op. Physical Exam Constitutional: WD/WN, vitals as above Psychiatric: A+Ox3, euthymic affect Genitourinary: c/c/+1 toco--q2min wfm--130s with mod variability, variables with pushing. Results & Data ([facility]) Vital Signs (Past 12 Hours) Vital Signs Temp Pulse Resp BP Pulse Ox 02/11/20 23:32 104 H 99 02/11/20 23:28 84 136/66 02/11/20 23:27 90 96 02/11/20 23:22 94 H 97 02/11/20 23:18 98 H 142/68 H 02/11/20 23:17 100 H 98 02/11/20 23:12 92 H 99 02/11/20 23:07 90 99 02/11/20 23:02 89 99 02/11/20 22:58 87 152/80 H 02/11/20 22:57 87 98 02/11/20 22:52 90 98 02/11/20 22:47 86 99 02/11/20 22:43 89 130/67 02/11/20 22:42 84 98 02/11/20 22:37 83 97 02/11/20 22:32 84 98 02/11/20 22:30 16 02/11/20 22:28 88 124/62 02/11/20 22:27 84 99 02/11/20 22:22 85 98 02/11/20 22:17 91 H 97 02/11/20 22:15 36.6 C 16 02/11/20 22:12 89 120/63 97 02/11/20 22:10 75 113/55 L 02/11/20 22:09 73 111/59 L 02/11/20 22:07 70 96 02/11/20 22:06 65 89/50 L 94 02/11/20 22:05 66 91/48 L 02/11/20 22:02 66 103/50 L 97 02/11/20 22:00 70 16 107/52 L 02/11/20 21:59 80 103/54 L 02/11/20 21:57 73 97 02/11/20 21:56 70 113/57 L 94 02/11/20 21:55 74 124/61 02/11/20 21:53 77 123/62 02/11/20 21:52 82 99 02/11/20 21:50 76 124/63 02/11/20 21:47 73 120/60 96 02/11/20 21:44 72 114/56 L 02/11/20 21:42 68 98 02/11/20 21:41 71 123/63 02/11/20 21:37 77 99 02/11/20 21:36 75 119/62 02/11/20 21:32 68 95 02/11/20 21:30 18 02/11/20 21:27 71 96 02/11/20 21:25 81 94 02/11/20 21:22 82 99 02/11/20 21:20 87 151/87 H 02/11/20 21:17 92 H 98 02/11/20 21:15 18 02/11/20 21:12 83 98 02/11/20 21:10 86 93 02/11/20 21:07 85 97 02/11/20 21:04 81 144/73 H 02/11/20 21:02 81 98 02/11/20 21:00 18 02/11/20 20:57 84 98 02/11/20 20:52 80 100 02/11/20 20:50 74 159/81 H 02/11/20 20:47 74 100 02/11/20 20:42 76 98 02/11/20 20:37 75 98 02/11/20 20:34 78 156/74 H 02/11/20 20:32 74 99 02/11/20 20:27 77 98 02/11/20 20:22 73 99 02/11/20 20:20 81 176/83 H 02/11/20 20:17 80 98 02/11/20 20:15 36.6 C 16 02/11/20 20:12 82 98 02/11/20 20:07 81 98 02/11/20 20:04 79 162/75 H 02/11/20 20:02 80 98 02/11/20 20:00 16 02/11/20 19:57 82 98 02/11/20 19:52 80 98 02/11/20 19:50 81 168/77 H 02/11/20 19:47 80 100 02/11/20 19:42 90 99 02/11/20 19:37 82 99 02/11/20 19:36 80 152/75 H 02/11/20 19:32 78 100 02/11/20 19:30 36.6 C 18 02/11/20 19:27 79 100 02/11/20 19:22 87 100 02/11/20 19:19 88 141/87 H 02/11/20 19:17 84 100 02/11/20 19:15 18 02/11/20 19:12 82 100 02/11/20 19:07 85 99 02/11/20 19:05 82 172/80 H 02/11/20 19:02 83 99 02/11/20 18:57 86 100 02/11/20 18:52 83 100 02/11/20 18:49 81 162/85 H 02/11/20 18:47 81 100 02/11/20 18:42 82 99 02/11/20 18:37 84 100 02/11/20 18:34 78 20 161/79 H 02/11/20 18:32 83 99 02/11/20 18:27 88 100 02/11/20 18:22 85 98 02/11/20 18:21 85 164/85 H 02/11/20 18:17 87 99 02/11/20 18:12 86 98 02/11/20 18:07 86 99 02/11/20 18:05 81 20 172/84 H 02/11/20 18:02 83 98 02/11/20 17:57 80 98 02/11/20 17:52 83 98 02/11/20 17:51 83 173/86 H 02/11/20 17:47 81 99 02/11/20 17:42 90 98 02/11/20 17:37 87 100 02/11/20 17:36 87 21 169/89 H 02/11/20 17:32 91 H 99 02/11/20 17:27 92 H 99 02/11/20 17:22 86 98 02/11/20 17:17 81 98 02/11/20 17:15 84 157/80 H 02/11/20 17:12 86 98 02/11/20 17:10 88 167/85 H 02/11/20 17:07 86 98 02/11/20 17:06 90 20 161/86 H 02/11/20 17:02 88 99 02/11/20 17:00 97 H 159/81 H 02/11/20 16:57 90 99 02/11/20 16:55 94 H 157/81 H 02/11/20 16:52 91 H 99 02/11/20 16:48 80 136/67 02/11/20 16:47 85 98 02/11/20 16:45 88 139/74 02/11/20 16:42 86 143/77 H 98 02/11/20 16:39 85 140/74 02/11/20 16:37 79 98 02/11/20 16:36 82 20 133/75 02/11/20 16:33 93 H 146/76 H 02/11/20 16:32 82 98 02/11/20 16:30 88 147/76 H 02/11/20 16:27 97 H 155/78 H 98 02/11/20 16:24 87 156/81 H 02/11/20 16:22 106 H 161/81 H 99 02/11/20 16:17 89 98 02/11/20 16:12 90 191/86 H 98 02/11/20 16:07 79 98 02/11/20 16:02 86 99 02/11/20 15:57 86 100 02/11/20 15:52 88 99 02/11/20 15:47 92 H 99 02/11/20 15:43 89 171/87 H 02/11/20 15:42 88 99 02/11/20 15:37 78 99 02/11/20 15:32 83 100 02/11/20 15:28 81 20 179/87 H 02/11/20 15:27 81 99 02/11/20 15:22 83 99 02/11/20 15:17 82 99 02/11/20 15:12 86 98 02/11/20 15:11 90 163/92 H 02/11/20 15:07 87 100 02/11/20 14:57 81 20 162/90 H 02/11/20 14:56 81 98 02/11/20 14:51 81 99 02/11/20 14:46 82 99 02/11/20 14:42 80 183/88 H 02/11/20 14:41 81 99 02/11/20 14:36 81 99 02/11/20 14:31 78 99 02/11/20 14:26 78 161/82 H 99 02/11/20 14:21 84 98 02/11/20 14:16 79 97 02/11/20 14:13 79 18 177/85 H 02/11/20 14:11 79 98 02/11/20 13:58 76 158/74 H 02/11/20 13:57 79 97 02/11/20 13:52 78 128/57 L 96 02/11/20 13:47 79 131/61 96 02/11/20 13:42 85 97 02/11/20 13:41 91 H 136/68 02/11/20 13:37 83 97 02/11/20 13:33 78 158/80 H 02/11/20 13:29 75 186/86 H 02/11/20 13:24 74 188/80 H 02/11/20 13:18 76 20 158/78 H 02/11/20 13:15 92 H 189/94 H 02/11/20 13:03 65 175/89 H 02/11/20 12:58 77 152/71 H 02/11/20 12:52 80 145/68 H 02/11/20 12:48 70 147/65 H 02/11/20 12:42 84 135/68 02/11/20 12:39 81 136/70 02/11/20 12:36 85 137/72 02/11/20 12:33 77 139/67 02/11/20 12:30 79 18 152/73 H 02/11/20 12:22 71 170/86 H 02/11/20 12:16 73 185/86 H 02/11/20 11:41 68 20 167/82 H Coding Level of Care Code None Diagnoses Insulin controlled gestational diabetes mellitus (GDM) during , antepartum O24.414
--- NOTE | 2020-02-12 00:06 | Delivery Summary ---
Vaginal Delivery Summary Date of Service February 12, 2020 Vaginal Delivery Summary Pre-operative Diagnosis: at 40 weeks insulin requiring gdm severe ghtn Post-operative Diagnosis: same Procedure: pitocin induction Mag seizure prophylaxis epidural arom first degree laceration with repair EBL: 350cc Anesthesia: epidural Procedure: The patient pushed for 35 min to deliver a viable female infant in zakia position. A loose nuchal cord x 1 was reduced and the rest of the was then delivered without difficulty. The baby was vigorous. The nose and mouth were bulb suctioned and the infant was placed in the maternal abdomen for drying and attention. Cord was clamped and cut at one minute of life. Cord blood and segment obtained. Placenta delivered spontaneous, intact with a three vessel cord. Cervix/sulci/rectum were intact. A first degree perineal laceration was repaired in the normal standard fashion. Hemostasis obtained with dilute pitocin and fundal massage. Apgars were 8/9. Mother and baby doing well at the end of the delivery. Mother will remain on magnesium. [facility] Vaginal Delivery Charge Vaginal Delivery Codes: 45745 global code for the antepartum, delivery, and post-
--- NOTE | 2020-02-12 00:27 | Anesthesia Procedure Note ---
Date of Service February 12, 2020 Anesthesia Post Epidural Note Vital Signs Vital Signs: Temp Pulse Resp BP Pulse Ox 36.6 C 103 H 18 135/65 99 02/11/20 22:15 02/12/20 00:22 02/11/20 23:15 02/12/20 00:20 02/12/20 00:22 Pain Intensity Left Hip: Pain Intensity: 2 Abdomen: Pain Intensity: 2 Notes Mental Status: alert / awake / arousable and participated in evaluation Nausea / Vomiting: adequately controlled Pain: adequately controlled Airway Patency, RR, SpO2: stable & adequate BP & HR: stable & adequate Hydration State: stable & adequate Neuraxial Anesthesia: was administered and sensory block is resolving Anesthetic Complications: no major complications apparent and Pt Satisfied with anesthetic care Epidural: Removed without complications and With tip intact Notes: Epidural site clean, dry and intact. No signs of edema, erythema or bruising at insertion site. Pt instructed to request anesthesia if she has residual lower extremity numbness or if she develops lower extremity pain or weakness, back pain or headache.
[2020-02-12] MEDS ORDERED: ACETAMINOPHEN 325 MG TAB PO PRN (01:51)
[2020-02-12] MEDS ORDERED: OXYTOCIN 30 UNITS/500 ML BAG IV PRN (01:51)
[2020-02-12] MEDS ORDERED: HYDROCORTISONE ACETATE 25 MG SUPP PR PRN (01:51)
[2020-02-12] MEDS ORDERED: DIPHTHERIA/TETANUS/PERTUSSIS 0.5 ML SYR/VIAL IM ONE (01:51)
[2020-02-12] MEDS ORDERED: OXYCODONE/ACETAMINOPHEN 5mg/325mg TAB PO PRN (01:51)
[2020-02-12] MEDS ORDERED: bisacodyL 10 MG SUPP PR PRN (01:51)
[2020-02-12] MEDS ORDERED: BENZOCAINE 20% AER SPR 82.5 GM CAN EXT PRN (01:51)
[2020-02-12] MEDS ORDERED: SUPERCREAM 0.870% 15 GM JAR EXT PRN (01:51)
[2020-02-12] MEDS: IBUPROFEN 600 MG TAB PO PRN ×3 (02:29→23:50)
[2020-02-12] MEDS: MAGNESIUM SULFATE / WTR 40 GM/1,000 ML BAG IV SCH (06:07)
--- NOTE | 2020-02-12 06:58 | Obstetrical Progress Note ---
Date of Service <Steve Liang MD - Last Filed: 02/12/20 07:07> February 12, 2020 Assessment & Plan <Steve Liang MD - Last Filed: 02/12/20 07:07> (1) : Yani Kelly is a 35yo who presented to L&D for IOL @ 40wga, PPD#1 -doing well, ambulating, tolerating clears -BP elevated to 140/67, no signs or symptoms of preeclampsia -A+, RI, GBS neg -routine care -f/u in [address] Moya Subjective <Steve Liang MD - Last Filed: 02/12/20 07:07> Ambulation: ambulating normally Voiding: no voiding problems Passing Gas:: Yes Diet Tolerance:: regular diet Lochia:: Small Constitutional: no fever and no chills Respiratory: no cough and no dyspnea Cardiovascular: no chest pain, no palpitations and no edema Gastrointestinal: no nausea and no vomiting Genitourinary (female): no dysuria Physical Exam <Steve Liang MD - Last Filed: 02/12/20 07:07> Constitutional no acute distress Respiratory normal respiratory effort, lungs clear to auscultation Cardiovascular RRR, no murmur, no edema Gastrointestinal (Abdomen) Inspection/Auscultation: normal bowel sounds Percussion/Palpation: abdomen soft Genitourinary Uterine fundus firm, palpable 3cm below umbilicus Results & Data ([facility]) <Steve Liang MD - Last Filed: 02/12/20 07:07> Vital Signs (Past 12 Hours) Vital Signs Temp Pulse Resp BP Pulse Ox 02/12/20 05:50 37.0 C 86 16 143/78 H 02/12/20 05:45 16 02/12/20 04:38 95 H 140/67 02/12/20 04:30 16 02/12/20 03:45 16 02/12/20 03:36 100 H 166/76 H 02/12/20 03:00 16 02/12/20 02:31 93 H 147/73 H 02/12/20 02:07 91 H 100 02/12/20 02:05 88 140/66 02/12/20 02:02 89 100 02/12/20 02:00 36.6 C 18 02/12/20 01:57 88 100 02/12/20 01:52 94 H 100 02/12/20 01:50 90 140/65 02/12/20 01:47 85 100 02/12/20 01:42 93 H 100 02/12/20 01:37 89 100 02/12/20 01:36 89 128/62 02/12/20 01:32 90 99 02/12/20 01:30 18 02/12/20 01:27 95 H 99 02/12/20 01:22 95 H 99 02/12/20 01:21 89 143/72 H 02/12/20 01:17 90 99 02/12/20 01:12 91 H 100 02/12/20 01:07 90 100 02/12/20 01:05 92 H 149/81 H 02/12/20 01:02 90 99 02/12/20 01:00 16 02/12/20 00:57 89 100 02/12/20 00:52 95 H 98 02/12/20 00:50 90 141/78 H 02/12/20 00:47 95 H 99 02/12/20 00:45 16 02/12/20 00:42 92 H 98 02/12/20 00:37 98 H 99 02/12/20 00:36 100 H 140/69 02/12/20 00:32 105 H 99 02/12/20 00:30 18 02/12/20 00:27 102 H 99 02/12/20 00:22 103 H 99 02/12/20 00:20 100 H 135/65 02/12/20 00:17 99 H 96 02/12/20 00:15 18 02/12/20 00:12 99 H 97 02/12/20 00:07 102 H 97 02/12/20 00:02 102 H 97 02/12/20 00:00 36.6 C 96 H 18 155/74 H 02/11/20 23:57 95 H 97 02/11/20 23:52 108 H 97 02/11/20 23:49 108 H 93 02/11/20 23:47 191 H 93 02/11/20 23:43 96 H 132/63 02/11/20 23:42 114 H 94 02/11/20 23:37 110 H 99 02/11/20 23:32 104 H 99 02/11/20 23:30 18 02/11/20 23:28 84 136/66 02/11/20 23:27 90 96 02/11/20 23:22 94 H 97 02/11/20 23:18 98 H 142/68 H 02/11/20 23:17 100 H 98 02/11/20 23:15 18 02/11/20 23:12 92 H 99 02/11/20 23:07 90 99 02/11/20 23:02 89 99 02/11/20 23:00 20 02/11/20 22:58 87 152/80 H 02/11/20 22:57 87 98 02/11/20 22:52 90 98 02/11/20 22:47 86 99 02/11/20 22:43 89 130/67 02/11/20 22:42 84 98 02/11/20 22:37 83 97 02/11/20 22:32 84 98 02/11/20 22:30 16 02/11/20 22:28 88 124/62 02/11/20 22:27 84 99 02/11/20 22:22 85 98 02/11/20 22:17 91 H 97 02/11/20 22:15 36.6 C 16 02/11/20 22:12 89 120/63 97 02/11/20 22:10 75 113/55 L 02/11/20 22:09 73 111/59 L 02/11/20 22:07 70 96 02/11/20 22:06 65 89/50 L 94 02/11/20 22:05 66 91/48 L 02/11/20 22:02 66 103/50 L 97 02/11/20 22:00 70 16 107/52 L 02/11/20 21:59 80 103/54 L 02/11/20 21:57 73 97 02/11/20 21:56 70 113/57 L 94 02/11/20 21:55 74 124/61 02/11/20 21:53 77 123/62 02/11/20 21:52 82 99 02/11/20 21:50 76 124/63 02/11/20 21:47 73 120/60 96 02/11/20 21:44 72 114/56 L 02/11/20 21:42 68 98 02/11/20 21:41 71 123/63 02/11/20 21:37 77 99 02/11/20 21:36 75 119/62 02/11/20 21:32 68 95 02/11/20 21:30 18 02/11/20 21:27 71 96 02/11/20 21:25 81 94 02/11/20 21:22 82 99 02/11/20 21:20 87 151/87 H 02/11/20 21:17 92 H 98 02/11/20 21:15 18 02/11/20 21:12 83 98 02/11/20 21:10 86 93 02/11/20 21:07 85 97 02/11/20 21:04 81 144/73 H 02/11/20 21:02 81 98 02/11/20 21:00 18 02/11/20 20:57 84 98 02/11/20 20:52 80 100 02/11/20 20:50 74 159/81 H 02/11/20 20:47 74 100 02/11/20 20:42 76 98 02/11/20 20:37 75 98 02/11/20 20:34 78 156/74 H 02/11/20 20:32 74 99 02/11/20 20:27 77 98 02/11/20 20:22 73 99 02/11/20 20:20 81 176/83 H 02/11/20 20:17 80 98 02/11/20 20:15 36.6 C 16 02/11/20 20:12 82 98 02/11/20 20:07 81 98 02/11/20 20:04 79 162/75 H 02/11/20 20:02 80 98 02/11/20 20:00 16 02/11/20 19:57 82 98 02/11/20 19:52 80 98 02/11/20 19:50 81 168/77 H 02/11/20 19:47 80 100 02/11/20 19:42 90 99 02/11/20 19:37 82 99 02/11/20 19:36 80 152/75 H 02/11/20 19:32 78 100 02/11/20 19:30 36.6 C 18 02/11/20 19:27 79 100 02/11/20 19:22 87 100 09/14/20 19:19 88 141/87 H 02/11/20 19:17 84 100 02/11/20 19:15 18 02/11/20 19:12 82 100 02/11/20 19:07 85 99 02/11/20 19:05 82 172/80 H 02/11/20 19:02 83 99 <Mariah Moya MD, FACOG - Last Filed: 02/12/20 08:05> Co-Signing Physician Notes Resident Physician Supervision Note: I interviewed and examined the patient. Discussed with Dr. Liang and agree with findings and plan as documented in the note. Any exceptions or clarifications are listed here: please see my detailed note. Overall agree with above. Documented By: Mariah Moya MD, FACOG Resident Activity Tracking <Steve Liang MD - Last Filed: 02/12/20 07:07> Resident Involvement: Resident Care Provided Care Provided: OB Delivery
--- NOTE | 2020-02-12 06:59 | Obstetrical Progress Note ---
Date of Service February 12, 2020 Assessment & Plan (1) Gestational hypertension without significant proteinuria during in third trimester, antepartum: Patient doing well. BPS 140s/70-80s. no s/s of pet. continue mag. Routine care. Day #:: 0 Subjective Ambulation: ambulating normally Voiding: no voiding problems Passing Gas:: No Diet Tolerance:: clear liquids Lochia:: Small Feeding Type:: breast feeding Patient notes she feels tired but otherwise ok. no bond/vision changes/ruq pain. no n/v. hungry. Physical Exam Constitutional WD/WN, vitals as above Cardiovascular Extremities: + edema (trace) Gastrointestinal (Abdomen) soft, nt, no ruq pain ff/nt 2 below u Psychiatric dtrs +3/2 no clonus Results & Data ([facility]) Vital Signs (Past 12 Hours) Vital Signs Temp Pulse Resp BP Pulse Ox 02/12/20 05:50 37.0 C 86 16 143/78 H 02/12/20 05:45 16 02/12/20 04:38 95 H 140/67 02/12/20 04:30 16 02/12/20 03:45 16 02/12/20 03:36 100 H 166/76 H 02/12/20 03:00 16 02/12/20 02:31 93 H 147/73 H 02/12/20 02:07 91 H 100 02/12/20 02:05 88 140/66 02/12/20 02:02 89 100 02/12/20 02:00 36.6 C 18 02/12/20 01:57 88 100 02/12/20 01:52 94 H 100 02/12/20 01:50 90 140/65 02/12/20 01:47 85 100 02/12/20 01:42 93 H 100 02/12/20 01:37 89 100 02/12/20 01:36 89 128/62 02/12/20 01:32 90 99 02/12/20 01:30 18 02/12/20 01:27 95 H 99 02/12/20 01:22 95 H 99 02/12/20 01:21 89 143/72 H 02/12/20 01:17 90 99 02/12/20 01:12 91 H 100 02/12/20 01:07 90 100 02/12/20 01:05 92 H 149/81 H 09/15/20 01:02 90 99 02/12/20 01:00 16 02/12/20 00:57 89 100 02/12/20 00:52 95 H 98 02/12/20 00:50 90 141/78 H 02/12/20 00:47 95 H 99 02/12/20 00:45 16 02/12/20 00:42 92 H 98 02/12/20 00:37 98 H 99 02/12/20 00:36 100 H 140/69 02/12/20 00:32 105 H 99 02/12/20 00:30 18 02/12/20 00:27 102 H 99 02/12/20 00:22 103 H 99 02/12/20 00:20 100 H 135/65 02/12/20 00:17 99 H 96 02/12/20 00:15 18 02/12/20 00:12 99 H 97 02/12/20 00:07 102 H 97 02/12/20 00:02 102 H 97 02/12/20 00:00 36.6 C 96 H 18 155/74 H 02/11/20 23:57 95 H 97 02/11/20 23:52 108 H 97 02/11/20 23:49 108 H 93 02/11/20 23:47 191 H 93 02/11/20 23:43 96 H 132/63 02/11/20 23:42 114 H 94 02/11/20 23:37 110 H 99 02/11/20 23:32 104 H 99 02/11/20 23:30 18 02/11/20 23:28 84 136/66 02/11/20 23:27 90 96 02/11/20 23:22 94 H 97 02/11/20 23:18 98 H 142/68 H 02/11/20 23:17 100 H 98 02/11/20 23:15 18 02/11/20 23:12 92 H 99 02/11/20 23:07 90 99 02/11/20 23:02 89 99 02/11/20 23:00 20 02/11/20 22:58 87 152/80 H 02/11/20 22:57 87 98 02/11/20 22:52 90 98 02/11/20 22:47 86 99 02/11/20 22:43 89 130/67 02/11/20 22:42 84 98 02/11/20 22:37 83 97 02/11/20 22:32 84 98 02/11/20 22:30 16 02/11/20 22:28 88 124/62 02/11/20 22:27 84 99 02/11/20 22:22 85 98 02/11/20 22:17 91 H 97 02/11/20 22:15 36.6 C 16 02/11/20 22:12 89 120/63 97 02/11/20 22:10 75 113/55 L 02/11/20 22:09 73 111/59 L 02/11/20 22:07 70 96 02/11/20 22:06 65 89/50 L 94 02/11/20 22:05 66 91/48 L 02/11/20 22:02 66 103/50 L 97 02/11/20 22:00 70 16 107/52 L 02/11/20 21:59 80 103/54 L 02/11/20 21:57 73 97 02/11/20 21:56 70 113/57 L 94 02/11/20 21:55 74 124/61 02/11/20 21:53 77 123/62 02/11/20 21:52 82 99 02/11/20 21:50 76 124/63 02/11/20 21:47 73 120/60 96 02/11/20 21:44 72 114/56 L 02/11/20 21:42 68 98 02/11/20 21:41 71 123/63 02/11/20 21:37 77 99 02/11/20 21:36 75 119/62 02/11/20 21:32 68 95 02/11/20 21:30 18 02/11/20 21:27 71 96 02/11/20 21:25 81 94 02/11/20 21:22 82 99 02/11/20 21:20 87 151/87 H 02/11/20 21:17 92 H 98 02/11/20 21:15 18 02/11/20 21:12 83 98 02/11/20 21:10 86 93 02/11/20 21:07 85 97 02/11/20 21:04 81 144/73 H 02/11/20 21:02 81 98 02/11/20 21:00 18 02/11/20 20:57 84 98 02/11/20 20:52 80 100 02/11/20 20:50 74 159/81 H 02/11/20 20:47 74 100 02/11/20 20:42 76 98 02/11/20 20:37 75 98 02/11/20 20:34 78 156/74 H 02/11/20 20:32 74 99 02/11/20 20:27 77 98 02/11/20 20:22 73 99 02/11/20 20:20 81 176/83 H 02/11/20 20:17 80 98 02/11/20 20:15 36.6 C 16 02/11/20 20:12 82 98 02/11/20 20:07 81 98 02/11/20 20:04 79 162/75 H 02/11/20 20:02 80 98 02/11/20 20:00 16 02/11/20 19:57 82 98 02/11/20 19:52 80 98 02/11/20 19:50 81 168/77 H 02/11/20 19:47 80 100 02/11/20 19:42 90 99 02/11/20 19:37 82 99 02/11/20 19:36 80 152/75 H 02/11/20 19:32 78 100 02/11/20 19:30 36.6 C 18 02/11/20 19:27 79 100 02/11/20 19:22 87 100 02/11/20 19:19 88 141/87 H 02/11/20 19:17 84 100 02/11/20 19:15 18 02/11/20 19:12 82 100 02/11/20 19:07 85 99 02/11/20 19:05 82 172/80 H 02/11/20 19:02 83 99
--- NOTE | 2020-02-12 07:07 | Medical Student Progress Note ---
Date of Service February 12, 2020 Assessment & Plan Admission and Anticipated Discharge Date Admission Date: Patient is a 35 year old female presenting post- day zero after the delivery of a 7lb boy. Patient's course was complicated by pre-eclampsia for which is currently on IV magnesium sulphate. She would be continued on magnesium sulphate for 24 hours and subsequently transferred to the Labor and Delivery floor where her blood pressure would be monitored.Patient is GBS negative, blood type A+ and her rubella titers are positive. Patient would receive maternal education on care. Subjective Patient is a 35 year old female presenting post- day zero after the uncomplicated vaginal delivery of a 7lb boy. Patient states feeling a little tired because she only an hour of rest overnight but overall, her mood feels normal. She plans to breastfeed her baby and started doing so after the delivery of the baby. Patient states experiencing no trouble urinating but hasn't had any bowel movement or passage of gas so far. She states experiencing an episode of minor bloody lochia but no other major bleed. She hasn't had any difficulty ambulating and reports no pain except for numbness of her right big toe. Patient denies any shortness of breath, chest pain, leg pain, lightheadedness or dizziness. Physical Exam Constitutional: WD/WN, vitals as above Cardiovascular: Rate/Rhythm: regular rate and regular rhythm Heart Sounds: normal S1 and normal S2 Extremities: + pedal edema (+1 minor edema in the lower extremities) Chest (Breasts): Chest: normal inspection of chest Gastrointestinal (Abdomen): normal bowel sounds, soft, nontender, no hepatosplenomegaly Neurologic: PERRL, EOMI, accommodation nl, no face palsy, no dysarthria Brisk patellar reflex per Dr. Mariah Moya Psychiatric: A+Ox3, euthymic affect Genitourinary: OB Exam Abdomen: + fundal height (Non-tender 4-5cm below the umbilicus) Fundus: + firm Results & Data ([facility]) Vital Signs (Past 12 Hours) Vital Signs Temp Pulse Resp BP Pulse Ox 02/12/20 05:50 37.0 C 86 16 143/78 H 02/12/20 05:45 16 02/12/20 04:38 95 H 140/67 02/12/20 04:30 16 02/12/20 03:45 16 02/12/20 03:36 100 H 166/76 H 02/12/20 03:00 16 02/12/20 02:31 93 H 147/73 H 02/12/20 02:07 91 H 100 02/12/20 02:05 88 140/66 02/12/20 02:02 89 100 02/12/20 02:00 36.6 C 18 02/12/20 01:57 88 100 02/12/20 01:52 94 H 100 02/12/20 01:50 90 140/65 02/12/20 01:47 85 100 02/12/20 01:42 93 H 100 02/12/20 01:37 89 100 02/12/20 01:36 89 128/62 02/12/20 01:32 90 99 02/12/20 01:30 18 02/12/20 01:27 95 H 99 02/12/20 01:22 95 H 99 02/12/20 01:21 89 143/72 H 02/12/20 01:17 90 99 02/12/20 01:12 91 H 100 02/12/20 01:07 90 100 02/12/20 01:05 92 H 149/81 H 02/12/20 01:02 90 99 02/12/20 01:00 02/12/20 00:57 89 100 02/12/20 00:52 95 H 98 02/12/20 00:50 90 141/78 H 02/12/20 00:47 95 H 99 02/12/20 00:45 16 02/12/20 00:42 92 H 98 02/12/20 00:37 98 H 99 02/12/20 00:36 100 H 140/69 02/12/20 00:32 105 H 99 02/12/20 00:30 18 02/12/20 00:27 102 H 99 02/12/20 00:22 103 H 99 02/12/20 00:20 100 H 135/65 02/12/20 00:17 99 H 96 02/12/20 00:15 18 02/12/20 00:12 99 H 97 02/12/20 00:07 102 H 97 02/12/20 00:02 102 H 97 02/12/20 00:00 36.6 C 96 H 18 155/74 H 09/14/20 23:57 95 H 97 02/11/20 23:52 108 H 97 02/11/20 23:49 108 H 93 02/11/20 23:47 191 H 93 02/11/20 23:43 96 H 132/63 02/11/20 23:42 114 H 94 02/11/20 23:37 110 H 99 02/11/20 23:32 104 H 99 02/11/20 23:30 18 02/11/20 23:28 84 136/66 02/11/20 23:27 90 96 02/11/20 23:22 94 H 97 02/11/20 23:18 98 H 142/68 H 02/11/20 23:17 100 H 98 02/11/20 23:15 18 02/11/20 23:12 92 H 99 02/11/20 23:07 90 99 02/11/20 23:02 89 99 02/11/20 23:00 20 02/11/20 22:58 87 152/80 H 02/11/20 22:57 87 98 02/11/20 22:52 90 98 02/11/20 22:47 86 99 02/11/20 22:43 89 130/67 02/11/20 22:42 84 98 02/11/20 22:37 83 97 02/11/20 22:32 84 98 02/11/20 22:30 16 02/11/20 22:28 88 124/62 02/11/20 22:27 84 99 02/11/20 22:22 85 98 02/11/20 22:17 91 H 97 02/11/20 22:15 36.6 C 16 02/11/20 22:12 89 120/63 97 02/11/20 22:10 75 113/55 L 02/11/20 22:09 73 111/59 L 02/11/20 22:07 70 96 02/11/20 22:06 65 89/50 L 94 02/11/20 22:05 66 91/48 L 02/11/20 22:02 66 103/50 L 97 02/11/20 22:00 70 16 107/52 L 02/11/20 21:59 80 103/54 L 02/11/20 21:57 73 97 02/11/20 21:56 70 113/57 L 94 02/11/20 21:55 74 124/61 02/11/20 21:53 77 123/62 02/11/20 21:52 82 99 02/11/20 21:50 76 124/63 02/11/20 21:47 73 120/60 96 02/11/20 21:44 72 114/56 L 02/11/20 21:42 68 98 02/11/20 21:41 71 123/63 02/11/20 21:37 77 99 02/11/20 21:36 75 119/62 02/11/20 21:32 68 95 02/11/20 21:30 18 02/11/20 21:27 71 96 02/11/20 21:25 81 94 02/11/20 21:22 82 99 02/11/20 21:20 87 151/87 H 02/11/20 21:17 92 H 98 02/11/20 21:15 18 02/11/20 21:12 83 98 02/11/20 21:10 86 93 02/11/20 21:07 85 97 02/11/20 21:04 81 144/73 H 02/11/20 21:02 81 98 02/11/20 21:00 18 02/11/20 20:57 84 98 02/11/20 20:52 80 100 02/11/20 20:50 74 159/81 H 02/11/20 20:47 74 100 02/11/20 20:42 76 98 02/11/20 20:37 75 98 02/11/20 20:34 78 156/74 H 02/11/20 20:32 74 99 02/11/20 20:27 77 98 02/11/20 20:22 73 99 02/11/20 20:20 81 176/83 H 02/11/20 20:17 80 98 02/11/20 20:15 36.6 C 16 02/11/20 20:12 82 98 02/11/20 20:07 81 98 02/11/20 20:04 79 162/75 H 02/11/20 20:02 80 98 02/11/20 20:00 16 02/11/20 19:57 82 98 02/11/20 19:52 80 98 02/11/20 19:50 81 168/77 H 02/11/20 19:47 80 100 02/11/20 19:42 90 99 02/11/20 19:37 82 99 02/11/20 19:36 80 152/75 H 02/11/20 19:32 78 100 02/11/20 19:30 36.6 C 18 02/11/20 19:27 79 100 02/11/20 19:22 87 100 02/11/20 19:19 88 141/87 H 02/11/20 19:17 84 100 02/11/20 19:15 18 02/11/20 19:12 82 100 02/11/20 19:07 85 99 02/11/20 19:05 82 172/80 H 02/11/20 19:02 83 99
[2020-02-12] MEDS: PRENATAL VITAMIN 1 TAB PO SCH (09:00)
[2020-02-12] MEDS: DOCUSATE SODIUM 100 MG CAP PO SCH ×2 (09:00→20:51)
[2020-02-12] MEDS: LACTATED RINGER'S 1,000 ML IV PRN (09:28)
[2020-02-13 06:15] LABS: Basophils # (auto) 0.03 K/uL (0-0.2); Basophils % (auto) 0.2 %; Eosinophils % (auto) 1.4 %; Hematocrit (blood only) 31.2 % (37-47); Hemoglobin 10.3 g/dL (12.0-16.0); Immature Granulocytes # (auto) 0.03 K/uL (0.00-0.02); Immature Granulocytes % (auto) 0.2 %; Lymphocytes # (auto) 3.07 K/uL (1.2-3.4); Lymphocytes % (auto) 22.2 %; Mean Corpuscular Volume 84.8 fL (80-100); Monocytes % (auto) 5.8 %; Neutrophils # (auto) 9.71 K/uL (1.4-6.5); Neutrophils % (auto) 70.2 %; Platelet Count 212 K/uL (130-400); RDW Coefficient of Variation 14.3 % (11.5-14.5); RDW Standard Deviation 44.2 fL (36.4-46.3); Red Blood Count 3.68 M/uL (4.2-5.4); White Blood Count 13.84 K/uL (4.8-10.8)
--- NOTE | 2020-02-13 07:10 | Medical Student Progress Note ---
Date of Service February 13, 2020 Assessment & Plan Admission and Anticipated Discharge Date Admission Date: Patient is a 35 year old female presenting on PP1 after a scheduled uncomplicated spontaneous vaginal delivery of a 7lb boy at 40 weeks EGA. was complicated by gestational diabetes mellitus, which was managed with nightly insulin, and preeclampsia, which was managed with IV magnesium sulphate. Pt is been recuperating on the Labor & Delivery floor and although her BP is slightly elevated, she denies any headaches, RUQ pain or other symptoms. Patient is GBS -ve, A+ and has positive rubella titers. Patient would be subsequently monitored and evaluated for possible discharge Subjective Patient is a 35 year old female presenting post- day one after the uncomplicated vaginal delivery of a 7lb boy. Patient states feeling better today and had 3 hours of sleep overnight. Overall, patient states that her mood is normal. Shes states experiencing minor cramps when she is her baby , which is does for 20 minutes at a time. Patient denies any trouble urinating and has experienced increased passage of gas but hasn't had any bowel movement. Patient states experiecning minor bloody lochia when the baby but the amount of blood has reduced since yesterday. She hasn't had any difficulty ambulating and reports no pain except for persistent numbness of her right big toe which has been present since yesterday. Patient denies any shortness of breath, chest pain, leg pain, lightheadedness or dizziness. Physical Exam Constitutional: WD/WN, vitals as above Eyes: PERRL, conjunctivae normal, anicteric sclerae ENMT: external ear and nose normal, oropharynx normal Neck: normal visual inspection Respiratory: normal respiratory effort, lungs clear to auscultation Auscultation: lungs clear to auscultation bilaterally Cardiovascular: RRR, no murmur, no edema Rate/Rhythm: regular rate and regular rhythm Heart Sounds: normal S1 and normal S2 Extremities: + pedal edema (+1 minor edema in the lower extremities) Gastrointestinal (Abdomen): normal bowel sounds, soft, nontender, no hepatosplenomegaly Psychiatric: A+Ox3, euthymic affect Genitourinary: OB Exam Abdomen: + fundal height (Non-tender 4-5cm below the umbilicus) Fundus: + firm Results & Data ([facility]) Vital Signs (Past 12 Hours) Vital Signs Temp Pulse Pulse Resp BP BP 02/12/20 23:45 36.9 C 85 18 147/76 H 02/12/20 20:10 37.0 C 79 18 150/87 H Supervising Attestation Resident Physician Supervision Note: I interviewed and examined the patient. Discussed with and agree with findings and plan as documented in the note. Any exceptions or clarifications are listed here: [None] Documented By: Sumi Duran MD, FACOG
--- NOTE | 2020-02-13 07:59 | Obstetrical Progress Note ---
Date of Service February 13, 2020 Assessment & Plan (1) Encounter for care and examination after delivery: continue to monitor BP's today- so far not elevated consistently to start labetalol Subjective Ambulation: ambulating normally Voiding: no voiding problems Passing Gas:: Yes Diet Tolerance:: regular diet Feeding Type:: breast feeding headache has resolved since MgSO4 was stopped. no PIH symptoms. Review of Systems All systems reviewed & are unremarkable except as noted in HPI & below Physical Exam Constitutional WD/WN, vitals as above Psychiatric A+Ox3, euthymic affect Genitourinary OB Exam Abdomen: + fundal height Fundus: + firm and + relation to umbilicus (2 below U) Results & Data ([facility]) Vital Signs (Past 12 Hours) Vital Signs Temp Pulse Pulse Resp BP BP 02/12/20 23:45 98.4 F 85 18 147/76 H 02/12/20 20:10 98.6 F 79 18 150/87 H
[2020-02-13] MEDS: DOCUSATE SODIUM 100 MG CAP PO SCH ×2 (09:12→20:55)
[2020-02-13] MEDS: PRENATAL VITAMIN 1 TAB PO SCH (09:12)
[2020-02-13] MEDS: IBUPROFEN 600 MG TAB PO PRN ×3 (09:13→20:55)
--- NOTE | 2020-02-13 14:46 | Obstetrical Progress Note ---
Date of Service February 13, 2020 Assessment & Plan (1) Gestational hypertension without significant proteinuria during in third trimester, antepartum: BP remains significantly elevated. May be a component of anxiety but BP still above the range I'm comfortable with. No s/sx severe PIH at this time, but will start labetalol and continue to observe for improvement. Admission and Anticipated Discharge Date Admission Date: February 11, 2020 Results & Data ([facility]) Vital Signs (Past 12 Hours) Vital Signs Temp Pulse Resp BP Pulse Ox 02/13/20 13:12 98.8 F 76 20 163/91 H 02/13/20 08:00 98.8 F 71 20 157/77 H 99 PG Care Time/CCT Total # of Minutes Spent Total Time Spent with Patient: Total time spent is greater than 50% in coordination of care (as documented) at patient's floor/unit and/or counseling patient: Coding Level of Care Code None Diagnoses Gestational hypertension without significant proteinuria during in third trimester, antepartum O13.3
[2020-02-13] MEDS: LABETALOL HCL 200 MG TAB PO SCH ×2 (15:44→20:55)
[2020-02-13] MEDS ORDERED: bisacodyL 5 MG TABEC PO SCH (20:00)
[2020-02-14] MEDS: IBUPROFEN 600 MG TAB PO PRN (06:01)
--- NOTE | 2020-02-14 07:00 | Obstetrical Progress Note ---
Date of Service February 14, 2020 Assessment & Plan (1) Gestational hypertension without significant proteinuria during in third trimester, antepartum: Doing better with labetalol, pressures down in the borderline to low HTN range. Will keep this dose, discharge today, with 1wk f/u in office. Subjective Ambulation: ambulating normally Voiding: no voiding problems Passing Gas:: Yes Diet Tolerance:: regular diet Lochia:: Small Current Pain Level(1-10): 0 Physical Exam Constitutional WD/WN, vitals as above Eyes PERRL, conjunctivae normal, anicteric sclerae ENMT external ear and nose normal, oropharynx normal Neck trachea midline, no thyromegaly Respiratory normal respiratory effort and able to speak in complete sentences; no respiratory distress, no labored breathing and does not use accessory muscles Cardiovascular Rate/Rhythm: regular rate and regular rhythm Extremities: no calf tenderness and no pedal edema Chest (Breasts) Breast: normal inspection of breasts Gastrointestinal (Abdomen) Inspection/Auscultation: abdomen normal to inspection; abdomen not distended Musculoskeletal no cyanosis or clubbing, extremities motor strength 5/5 Skin no rashes, warm and dry Neurologic patellar DTR's 2+ bilat, sensation intact Psychiatric A+Ox3, euthymic affect Genitourinary Speculum/Bimanual Exam: uterus nontender OB Exam Abdomen: + fundal height (at umbilicus) Fundus: + firm Results & Data ([facility]) Vital Signs (Past 12 Hours) Vital Signs Temp Pulse Resp BP 02/14/20 06:00 65 146/79 H 02/13/20 23:40 98.4 F 80 18 146/80 H 02/13/20 20:50 86 18 145/77 H
[2020-02-14 07:15] LABS: Hematocrit (blood only) 32.5 % (37-47); Hemoglobin 10.8 g/dL (12.0-16.0)
[2020-02-14] MEDS: PRENATAL VITAMIN 1 TAB PO SCH (08:07)
[2020-02-14] MEDS: DOCUSATE SODIUM 100 MG CAP PO SCH (08:07)
[2020-02-14] MEDS: LABETALOL HCL 200 MG TAB PO SCH (08:07)
== END 2020-02-14 13:06 | disposition home or self-care (01) | DRG 807 ==
LOC: 4S1 07:53 → 4S2 02-12 18:09

== ENCOUNTER 2021-08-09 16:05 | Observation (INO) ==
[2021-08-09] MEDS ORDERED: SODIUM CHLORIDE 0.9% 1000ML 1,000 ML IV STA (16:29)
[2021-08-09] MEDS ORDERED: ONDANSETRON INJ 2 MG/ML 2 ML VIAL IV STA (16:29)
--- NOTE | 2021-08-09 16:47 | Emergency Department Note ---
Impression & Plan Acute right lower quadrant pain, Abnormal WBC count ED Provider Note NAME: HAVEN KELLY AGE: 36 SEX: F : 1985 ARRIVES VIA: Walk-In INFORMANT: Patient, ED PROVIDER(S): Jericho Pichardo DO CHIEF COMPLAINT: Abdominal pain HPI: Patient is a 36-year-old female who presented to emergency department for an evaluation of abdominal pain. The patient states that she started noticing right-sided abdominal pain which began this morning. Initially started low into her pelvis she thought it felt like pelvic cramping. She denies having any nausea or vomiting. She denies having any dysuria or frequency. She notices no hematuria. She states the pain sometimes goes into her back. Patient states the pain is slowly worsened and now she notices it in her right lower quadrant. She has had no fever. She states the pain is worse with ambulation as well as palpation over the lower abdomen. She denies having any missed periods. She denies having any headache. The patient did not see her family doctor for the symptoms. ROS: See above HPI for pertinent positives & negatives. A total of 10 systems reviewed and were otherwise negative. PAST MEDICAL HISTORY: See Below PAST SURGICAL HISTORY: See Below FAMILY HISTORY: See Below SOCIAL HISTORY: See Below HOME MEDICATIONS: See Below ALLERGIES: See Below VITALS: See Below PHYSICAL EXAMINATION: GENERAL: The patient is awake and alert. The patient is very anxious and appears to be uncomfortable. EYES: The conjunctivae are clear. The pupils are round and reactive. EARS, NOSE, MOUTH AND THROAT: The nose is without any evidence of any deformity. NECK: The neck is nontender and supple. RESPIRATORY: Normal respiratory effort is noted there is no evidence of wheezing rhonchi or rales CARDIOVASCULAR: Regular rate and rhythm noted there no murmurs rubs or gallops normal S1 normal S2. GASTROINTESTINAL: The abdomen is soft and mildly distended. There is significant right and left lower quadrant tenderness palpation. There is slight guarding in the right lower quadrant. MUSCULOSKELETAL/EXTREMITIES: There is no evidence of gross deformity full range of motion is noted in the hips and shoulders. SKIN: There is no obvious evidence of any rash. There are no petechiae, pallor or cyanosis noted. NEUROLOGIC: Patient is awake alert and oriented x3. MEDICAL DECISION MAKING: The patient is a 36-year-old female who presented to the emergency department for an evaluation of right-sided abdominal pain. My initial history and physical exam appear to be consistent with a surgical abdomen. For this reason further laboratory and radiographic studies were obtained. The patient was found to have a very elevated white blood cell count. For this reason CT the abdomen and pelvis was obtained but no acute abnormality was noted. The patient was treated with IV fluids in the emergency department. She did not wish to have any pain medication. CT was discussed with surgery. They evaluated the patient in the emergency department and agreed that she does have significant abdominal pain. They felt the patient might be a good candidate for observation on the medicine service with serial abdominal exams. If the patient's symptoms did not improve significantly it would most likely make sense for the patient have a repeat CT with IV and p.o. contrast to further evaluate the cause of her symptoms. I discussed this case with the on-call [facility]. They have agreed to evaluate the patient in the emergency department for further management and disposition. Triage Nursing notes reviewed. Prior medical records reviewed Vital Signs: reviewed and remarkable for no significant abnormalities Differential diagnosis: Appendicitis, ovarian cyst, ovarian torsion, ectopic , TOA, PID, infections, diverticulitis, UTI, obstruction, mesenteric ischemia, aortic pathology, inflammatory bowel disease, renal colic, PUD, pancreatitis, biliary pathology, hernia, volvulus, constipation, as well as other pathologies. ER treatment provided: See below Diagnostics interpreted by me: ECG: none Cardiac Monitoring: An order was placed for continuous cardiac monitoring. The monitor shows a rate of 84 bpm with sinus rhythm. Laboratory studies: As stated above and show below. Imaging studies: See below Consultation(s): Discussed this case with Alexey Fleming who is on-call for general surgery. I discussed this case with Dr. Jennings who is on-call for the [facility] group. Past Med/Surg History Medical History Diet controlled gestational diabetes mellitus (GDM), antepartum Eczema Fibroids History of chicken pox Surgical History History of open heart surgery ASD repair 1990 S/P wisdom tooth extraction Family History Mother Diabetes Hypertension Social History Smoking Status: Never smoker Hx Alcohol Use: No Hx Substance Use: No Preferred Language: Armenian Communication Ability: Effective Stylist Assistant Required: No Beliefs That Will Affect Care: None marital status: marital status details: Pierre Kelly (36) [phone] Current Living Situation: Spouse Current Living Situation Comment: lives with spouse, daughter, dogs 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: Yes Assistive Devices: Glasses Allergies Allergies Allergy/AdvReac Type Severity Reaction Status Date / Time No Known Allergies Allergy Verified 08/09/21 17:03 Home Meds Home Medications Medication Instructions Recorded Confirmed labetalol 200 mg tablet 100 mg PO BID tab 03/21/20 08/09/21 cholecalciferol (vitamin D3) 25 0 mcg PO HS 08/09/21 08/09/21 mcg (1,000 unit) capsule (Vitamin D3) elderberry fruit 460 mg-elderberry 1 cap PO HS 08/09/21 08/09/21 flower 115 mg capsule garlic 1,000 mg capsule (garlic 0 mg PO QAM 08/09/21 08/09/21 oil) multivitamin with minerals 1 tab PO HS 08/09/21 08/09/21 (Hair,Skin and Nails) Results & Data (ED) Vital Signs Vital Signs - 24 hr 08/09/21 16:08 08/09/21 19:56 Temperature 36.2 C L Temperature Source Temporal Artery Scan Pulse Rate 96 H 84 Pulse Rhythm Regular Pulse Strength Normal Respiratory Rate 20 Respiratory Effort / Characteristics Non-Labored Spontaneous Respiratory Depth Normal Respiratory Pattern Regular Blood Pressure 166/115 H 119/89 Blood Pressure Mean 132 99 Blood Pressure Position Sitting Pulse Oximetry 98 Oxygen Delivery Method Room Air Sepsis Recent Fever Within 48 Hours No Sepsis New/Unexplained Change in Mental Status No Sepsis Action Taken by Nursing No Action Required Home Medications Current Medication List: was personally reviewed by me Laboratory Data Attestation: I reviewed the patient's lab results. Result diagrams: 08/09/21 16:35 08/09/21 16:35 Lab Results 08/09/21 08/09/21 08/09/21 Range/Units 16:35 16:35 16:35 WBC 20.20 H (4.8-10.8) K/uL RBC 4.80 (4.2-5.4) M/uL Hgb 14.1 (12.0-16.0) g/dL Hct 41.1 (37-47) % MCV 85.6 (80-100) fL MCH 29.4 (25-34) pg MCHC 34.3 (32-36) g/dL RDW Std Deviation 40.6 (36.4-46.3) fL RDW Coeff of Tomer 13.0 (11.5-14.5) % Plt Count 270 (130-400) K/uL MPV 9.0 (7.4-10.4) fL Immature Gran % (Auto) 0.4 % Neut % (Auto) 83.5 % Lymph % (Auto) 11.3 % [place] % (Auto) 4.0 % Eos % (Auto) 0.8 % Baso % (Auto) 0.0 % Neut # (Auto) 16.84 H (1.4-6.5) K/uL Lymph # (Auto) 2.29 (1.2-3.4) K/uL [place] # (Auto) 0.81 H (0.11-0.59) K/uL Eos # (Auto) 0.17 (0-0.5) K/uL Baso # (Auto) 0.01 (0-0.2) K/uL Immature Gran # (Auto) 0.08 H (0.00-0.02) K/uL Sodium 135 L (136-145) mmol/L Potassium 3.7 (3.5-5.1) mmol/L Chloride 101 (98-107) mmol/L Carbon Dioxide 23 (21-32) mmol/L Anion Gap 11 (3-11) BUN 10 (6-23) mg/dl Creatinine 0.52 L (0.6-1.2) mg/dl Est Cr Clr Drug Dosing 142.7 ml/min Est GFR ( Amer) 143.5 ml/min Est GFR (Non-Af Amer) 123.8 ml/min BUN/Creatinine Ratio 19.2 (10-20) Glucose 111 H (70-99(Fasting)) mg/dl Calcium 10.1 (8.5-10.1) mg/dl Magnesium (1.7-2.4) mg/dl Total Bilirubin 0.4 (0.2-1.0) mg/dl AST 20 (13-39) U/L ALT 24 (7-52) U/L Alkaline Phosphatase 43 (34-104) U/L Total Protein 7.7 (6.0-8.3) gm/dl Albumin 4.6 (3.4-5.0) gm/dl Globulin 3.1 (2.5-4.0) gm/dl Albumin/Globulin Ratio 1.5 (0.9-2) Lipase 7 L (11-82) U/L HCG, Qual Negative (Negative) Urine Color Urine Appearance (Clear) Urine pH (4.5-7.5) Ur Specific Aurora (1.000-1.030) Urine Protein (Negative) Urine Glucose (UA) (Negative) Urine Ketones (Negative) Urine Blood (Negative) Urine Nitrite (Negative) Urine Bilirubin (Negative) Urine Urobilinogen (Negative) Ur Leukocyte Esterase (Negative) SARS-CoV-2, RNA, NAAT (NEGATIVE) 08/09/21 08/09/21 08/09/21 Range/Units 16:35 17:45 22:00 WBC (4.8-10.8) K/uL RBC (4.2-5.4) M/uL Hgb (12.0-16.0) g/dL Hct (37-47) % MCV (80-100) fL MCH (25-34) pg MCHC (32-36) g/dL RDW Std Deviation (36.4-46.3) fL RDW Coeff of Tomer (11.5-14.5) % Plt Count (130-400) K/uL MPV (7.4-10.4) fL Immature Gran % (Auto) % Neut % (Auto) % Lymph % (Auto) % [place]ou[place] % (Auto) % Eos % (Auto) % Baso % (Auto) % Neut # (Auto) (1.4-6.5) K/uL Lymph # (Auto) (1.2-3.4) K/uL [place] # (Auto) (0.11-0.59) K/uL Eos # (Auto) (0-0.5) K/uL Baso # (Auto) (0-0.2) K/uL Immature Gran # (Auto) (0.00-0.02) K/uL Sodium (136-145) mmol/L Potassium (3.5-5.1) mmol/L Chloride (98-107) mmol/L Carbon Dioxide (21-32) mmol/L Anion Gap (3-11) BUN (6-23) mg/dl Creatinine (0.6-1.2) mg/dl Est Cr Clr Drug Dosing ml/min Est GFR ( Amer) ml/min Est GFR (Non-Af Amer) ml/min BUN/Creatinine Ratio (10-20) Glucose (70-99(Fasting)) mg/dl Calcium (8.5-10.1) mg/dl Magnesium 1.5 L (1.7-2.4) mg/dl Total Bilirubin (0.2-1.0) mg/dl AST (13-39) U/L ALT (7-52) U/L Alkaline Phosphatase (34-104) U/L Total Protein (6.0-8.3) gm/dl Albumin (3.4-5.0) gm/dl Globulin (2.5-4.0) gm/dl Albumin/Globulin Ratio (0.9-2) Lipase (11-82) U/L HCG, Qual (Negative) Urine Color Yellow Urine Appearance Clear (Clear) Urine pH 7.0 (4.5-7.5) Ur Specific Aurora 1.017 (1.000-1.030) Urine Protein Negative (Negative) Urine Glucose (UA) Negative (Negative) Urine Ketones Negative (Negative) Urine Blood Negative (Negative) Urine Nitrite Negative (Negative) Urine Bilirubin Negative (Negative) Urine Urobilinogen Negative (Negative) Ur Leukocyte Esterase Negative (Negative) SARS-CoV-2, RNA, NAAT NEGATIVE (NEGATIVE) Administered Medications Lactated Ringer's (Lr) 1,000 mls @ 500 mls/hr IV .Q2H STA Stop: 08/09/21 23:35 Last Admin: 08/09/21 21:41 Dose: 500 mls/hr Documented by: [id number] Discontinued Medications Sodium Chloride (Nss 1000ml) 1,000 mls @ 999 mls/hr IV .Q1H1M STA Stop: 08/09/21 17:29 Last Infusion: 08/09/21 19:57 Dose: 0 mls/hr Documented by: [id number] Admin: 08/09/21 17:42 Dose: 999 mls/hr Documented by: [id number] Ioversol (Optiray 320 100ml) 95 ml IV ONCE ONE Stop: 08/09/21 17:52 Last Admin: 08/09/21 17:51 Dose: 95 ml Documented by: [id number] Ketorolac Tromethamine (Ketorolac Tromethamine 15 Mg/Ml Vial) 15 mg IV NOW ONE Stop: 08/09/21 21:51 Last Admin: 08/09/21 21:56 Dose: 15 mg Documented by: [id number] Ondansetron HCl (Ondansetron Inj 2 Mg/Ml 2 Ml Vial) 4 mg IV NOW STA Stop: 08/09/21 16:30 Last Admin: 08/09/21 17:42 Dose: 4 mg Documented by: [id number] Imaging Data Radiologist's Impression: Abdomen/Pelvis CT 08/09/21 16:[address] WITH IV CONTRAST CT DOSE: 583.26 mGy.cm HISTORY: Acute pain of the abdominal right lower quadrant RLQ TECHNIQUE: Multiaxial CT images of the abdomen and pelvis were performed following the IV administration of 95 cc of Optiray, A dose lowering technique was utilized adhering to the principles of ALARA. COMPARISON STUDY: CT abdomen and pelvis 03/01/2017 FINDINGS: The imaged inferior cardiac chambers are unremarkable. Clear lung ba ses. No pneumatosis or pneumoperitoneum. The spleen, pancreas, adrenal glands and liver appear unremarkable. Mild distention of the gallbladder. Patency of the hepatic and portal veins. Unremarkable kidneys. No hydronephrosis. Urinary bladder wall thickening with partial distention. Perivesicular inflammatory stranding. There is suggested arcuate morphology of the uterus. Follicular changes of the ovaries. Aorta and IVC are unremarkable. No adenopathy. No bowel obstruction or bowel wall thickening. Hyperattenuating material is noted within a few loops of small bowel within the abdominal right lower quadrant. Normal appendix. Tiny fat filled periumbilical hernia. Unremarkable soft tissues. No acute fracture. IMPRESSION: 1. No acute intra-abdominal or intrapelvic abnormality. 2. No bowel obstruction or bowel wall thickening. Normal appendix. ACT 112: Negative or not required by law. The above report was generated using voice recognition software. It may contain grammatical, syntax or spelling errors. Electronically signed by: Ramiro Winkler M.D. 08/09/2021 6:17 PM Discharge Plan Visit Data Chief Complaint: Abdominal Pain Stated Complaint: STOMACH PAIN, NAUSEA, CHILLS, FEVER, ED Provider: Jericho Pichardo Discharge Problem: Acute right lower quadrant pain, Abnormal WBC count Patient Disposition: Being Evaluated by Hospitalist Forms Stand Alone Forms: [facility] Prescriptions Prescriptions: No Action labetalol 200 mg tablet 100 mg PO BID RF: 0 garlic [garlic oil] 1,000 mg Capsule 0 mg PO QAM RF: 0 Hair,Skin and Nails Tablet 1 tab PO HS RF: 0 cholecalciferol (vitamin D3) [Vitamin D3] 25 mcg (1,000 unit) Capsule 0 mcg PO HS RF: 0 elderberry fruit and flower 460-115 mg Capsule 1 cap PO HS RF: 0 Referrals Referrals: Hallie Kaiser PA-C [Primary Care Provider] -
[2021-08-09 16:50] LABS: Basophils # (auto) 0.01 K/uL (0-0.2); Eosinophils # (auto) 0.17 K/uL (0-0.5); Eosinophils % (auto) 0.8 %; Hematocrit (blood only) 41.1 % (37-47); Hemoglobin 14.1 g/dL (12.0-16.0); Immature Granulocytes # (auto) 0.08 K/uL (0.00-0.02); Immature Granulocytes % (auto) 0.4 %; Lymphocytes # (auto) 2.29 K/uL (1.2-3.4); Lymphocytes % (auto) 11.3 %; Mean Corpuscular Hemoglobin 29.4 pg (25-34); Mean Corpuscular Hgb Conc 34.3 g/dL (32-36); Mean Corpuscular Volume 85.6 fL (80-100); Monocytes # (auto) 0.81 K/uL (0.11-0.59); Neutrophils # (auto) 16.84 K/uL (1.4-6.5); Neutrophils % (auto) 83.5 %; Platelet Count 270 K/uL (130-400); RDW Standard Deviation 40.6 fL (36.4-46.3)
[2021-08-09 17:14] LABS: Albumin Globulin Ratio 1.5 (0.9-2); Albumin Level 4.6 gm/dl (3.4-5.0); BUN Creatinine Ratio 19.2 (10-20); Bilirubin,Total 0.4 mg/dl (0.2-1.0); Calcium 10.1 mg/dl (8.5-10.1); Creatinine Clr Calc Pharmacy 142.7 ml/min; Est GFR (African American) 143.5 ml/min; Est GFR (Non-African American) 123.8 ml/min; Globulin 3.1 gm/dl (2.5-4.0); Potassium 3.7 mmol/L (3.5-5.1); Total Protein 7.7 gm/dl (6.0-8.3)
[2021-08-09] MEDS ORDERED: OPTIRAY 320 100ml IV ONE (17:51)
--- NOTE | 2021-08-09 18:18 | CT Scan Report ---
ABDOMEN AND PELVIS CT WITH IV CONTRAST CT DOSE: 583.26 mGy.cm HISTORY: Acute pain of the abdominal right lower quadrant RLQ TECHNIQUE: Multiaxial CT images of the abdomen and pelvis were performed following the IV administrat ion of 95 cc of Optiray, A dose lowering technique was utilized adhering to the principles of ALARA. COMPARISON STUDY: CT abdomen and pelvis 03/01/2017 FINDINGS: The imaged inferior cardiac chambers are unremarkable. Clear lung bases. No pneumatosis or pneumoperitoneum. The spleen, pancreas, adrenal glands and liver appear unremarkable. Mild distention of the gallbladder. Patency of the hepatic and portal veins. Unremarkable kidneys. No hydronephrosis . Urinary bladder wall thickening with partial distention. Perivesicular inflammatory stranding. Ther e is suggested arcuate morphology of the uterus. Follicular changes of the ovaries. Aorta and IVC are unremarkable. No adenopathy. No bowel obstruction or bowel wall thickening. Hyperattenuating material is noted within a few loops of small bowel within the abdominal right lower quadrant. Normal appendix. Tiny fat filled periumbili ijeoma hernia. Unremarkable soft tissues. No acute fracture. IMPRESSION: 1. No acute intra-abdominal or intrapelvic abnormality. 2. No bowel obstruction or bowel wall thickening. Normal appendix. ACT 112: Negative or not required by law. The above report was generated using voice recognition software. It may contain grammatical, syntax o r spelling errors. Electronically signed by: Ramiro Winkler M.D. 08/09/2021 6:17 PM
[2021-08-09 18:33] LABS: Appearance Urine Clear (Clear); Bilirubin Urine Negative (Negative); Blood Urine Negative (Negative); Color Urine Yellow; Glucose Urine UA Negative (Negative); Ketones Urine Negative (Negative); Leukocyte Esterase Urine Negative (Negative); Nitrite Urine Negative (Negative); Protein Urine Negative (Negative); Specific Gravity Urine 1.017 (1.000-1.030); Urobilinogen Urine Negative (Negative)
[2021-08-09 20:19] LABS: Pregnancy Test, Serum Negative (Negative)
--- NOTE | 2021-08-09 21:19 | Surgery Consultation ---
Date of Consultation August 09, 2021 Assessment & Plan (1) Abdominal pain: Cause of patient's abdominal pain is unclear. It is nowhere the mention however that at the present time she has an essentially normal CT scan of the abdomen without any evidence of any surgical pathology or surgical emergencies. I did discuss with the patient that there are numerous etiologies that could be responsible for pain which include but are not limited to mesenteric adenitis, gastroenteritis, issues with her female reproductive organs, or even a COVID-19 infection. I did discuss with the emergency room physician and noted that consideration could be given to having her admitted to the hospital on the medical service for observation and if her pain resolves she can be discharged home. If her pain gets worse consideration can be given to performing repeat imaging of her abdomen as her could be a condition that has not manifested on her CAT scan at this time. We will be available should any surgical needs arise. Supervising Physician Co-Signing Physician Notes As per Alexey Fleming physician assistant food service manager I evaluated the patient this morning 08/10/2021 where she feels much better right lower quadrant pain is much less physical exam the abdomen is soft there is no tenderness the patient stated that her pain was in the right lower quadrant but had gone towards the right flank area on the back She has had multiple urinary tract infections and I suspect this may be somewhat related to that but there is no intra-abdominal findings and nothing surgical We will sign off we will glad to see her anytime new issues should arise History of Present Illness Reason for Consultation: Abdominal pain History of Present Illness This is a 36-year-old female I saw at the request of Dr. Pichardo in the emergency department. This is a 36-year-old female who presented to the emergency department secondary abdominal pain. Patient says that she was in her usual state of health feeling fine yesterday when earlier this morning she developed abdominal pain. She said the pain was located infraumbilically in the central area of her abdomen and to a greater extent the right lower quadrant. She had one episode of nausea without vomiting this morning. She has had no diarrhea. She denies any fevers, shakes, chills. She denies any dysuria. She has never had any abdominal surgery. She notes that the pain is worse with certain movements. She notes that the pain is improved when lying still. She notes that her last menstrual period was 2 weeks ago. She does note when she has her menstrual period it is sometimes painful but other times it is not painful. She does report a history of uterine fibroids and has not required any treatment for this. She does add that a gastroenteritis went through her entire household several weeks ago but she feels as though she is adequately recovered from this. She also reported that she had a urinary tract infection 2 months ago which she required 2 courses of antibiotics. She does report that she has had a COVID vaccine. She did have a family member have a recent Covid infection but she did not become afflicted with this condition. She denies any loss of appetite. Today in the emergency department patient had labs and imaging which I independent reviewed. Her white blood cell count is 20.2. Hemoglobin, hematocrit, and platelet count were all normal. Chemistry profile showed sodium was 135. Potassium and BUN were both normal. Her creatinine was low at 0.52. Her bilirubin, transaminases, alkaline phosphatase, and lipase were not elevated. test was negative. Urinalysis was not indicative of infection.Patient had a CT scan of the abdomen and pelvis that showed no acute intra-abdominal or intrapelvic abnormalities. There is specifically no bowel obstruction or bowel wall thickening. Interpreting radiologist described the appendix is normal with no inflammation. Since arrival to the emergency department she has not received any pain medicine. At the time my interview she was resting comfortably in bed and she was in no distress. Allergies Allergy/AdvReac Type Severity Reaction Status Date / Time No Known Allergies Allergy Verified 08/09/21 17:03 Home Medications Medication Instructions Recorded Confirmed Type labetalol 200 mg tablet 100 mg PO BID tab 03/21/20 08/09/21 History cholecalciferol (vitamin D3) 25 0 mcg PO HS 08/09/21 08/09/21 History mcg (1,000 unit) capsule (Vitamin D3) elderberry fruit 460 mg-elderberry 1 cap PO HS 08/09/21 08/09/21 History flower 115 mg capsule garlic 1,000 mg capsule (garlic 0 mg PO QAM 08/09/21 08/09/21 History oil) multivitamin with minerals 1 tab PO HS 08/09/21 08/09/21 History (Hair,Skin and Nails) Patient History Medical History Diet controlled gestational diabetes mellitus (GDM), antepartum Eczema Fibroids History of chicken pox Surgical History History of open heart surgery ASD repair 1990 S/P wisdom tooth extraction Family History Mother Diabetes Hypertension Social History Smoking Status: Former smoker Second Hand Exposure: No; Do You Dip or Chew Tobacco: No; Tobacco Cessation Education Requested by Patient: No Hx Alcohol Use: Yes Alcohol type: beer and wine Hx Substance Use: No Preferred Language: French Communication Ability: Effective Bed Operator Required: No Beliefs That Will Affect Care: None marital status: marital status details: Pierre Kelly (35) [phone] Current Living Situation: Family Current Living Situation Comment: lives with spouse, daughter, dogs 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 That Helps Us Care for You: No Feels Safe at Home: Yes Safety Concerns: Feels Safe At This Time Assistive Devices: Glasses Review of Systems Constitutional: no fever and no chills Eyes: no diplopia Ear, Nose, Mouth, Throat: no ear pain Respiratory: no cough and no dyspnea Cardiovascular: no chest pain Gastrointestinal: as per Subjective / HPI, + abdominal pain and + nausea (Resolved); no vomiting Genitourinary: no dysuria Musculoskeletal: no back pain Integumentary: no rash Neurologic: no localized weakness Physical Exam Constitutional: well developed and well nourished; no acute distress Eyes: no conjunctival abnormality ENMT: Ears: no hearing impairment and no external ear abnormality Neck: trachea midline Respiratory: normal respiratory effort; no respiratory distress and no labored breathing Cardiovascular: Rate/Rhythm: regular rate and regular rhythm Gastrointestinal (Abdomen): Abdomen is soft and nondistended. There is no rebound tenderness or guarding. Patient did have pain with palpation in the right lower quadrant. I did not appreciate any hernias. I did not appreciate any masses. The patient did not have any exacerbation of her pain with heel strike. Recently shaking the emergency department letter did not exacerbate her pain. Musculoskeletal: No calf tenderness Skin: no rashes Neurologic: moves all extremities Psychiatric: A+Ox3, euthymic affect Results & Data ([facility]) Vital Signs (Past 12 Hours) Vital Signs Temp Pulse Resp BP Pulse Ox 08/09/21 19:56 84 119/89 08/09/21 16:08 36.2 C L 96 H 20 166/115 H 98 PG Care Time/CCT Total # of Minutes Spent Total Time Spent with Patient: Total time spent is greater than 50% in coordination of care (as documented) at patient's floor/unit and/or counseling patient: Coding Level of Care Code 48058 Inpt Consult Level 5 Diagnoses Abdominal pain R10.9
[2021-08-09] MEDS ORDERED: LACTATED RINGER'S 1,000 ML IV STA (21:36)
[2021-08-09] MEDS ORDERED: KETOROLAC TROMETHAMINE 15 MG/ML VIAL IV ONE (21:50)
--- NOTE | 2021-08-09 21:55 | History & Physical Report ---
Date of Service August 09, 2021 Assessment & Plan (1) RLQ abdominal pain: Plan: Possibly muscular No appendicitis on CT IV contrast study. Patient uncomfortable going home despite Surgery clearance. She prefers to be observed overnight. hypertension, stable Hyperglycemia rule out DM, hx gestational DM ASD status post surgery Past tobacco abuse OBS GMF Analgesia Clear liquids for now CT abdomen pelvis with IV and oral contrast to definitively rule out appendici tis if with worsening abdominal pain Check hemoglobin A1c DVT prophylaxis per Lovenox subcu Full code Text document was generated using [employer] voice recognition software. It may contain grammatical or spelling errors. Kindly contact undersigned for clarification of any documentation item in question. History of Present Illness Chief Complaint: Right lower quadrant pain Primary Care Provider: Dr. Ramon History obtained from patient and records. Medical history significant for hypertension, gestational DM, ASD status post surgery, past tobacco abuse Last confinement January 2020 under Obstetrics service for term status post vaginal delivery. Patient woke up this morning with achy right lower quadrant pain somewhat worse with motion. Crampy in quality as per patient some nausea without emesis. No fever, no chills. No prior episodes. Not better with remedies taken at home. 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 Allergies Allergy/AdvReac Type Severity Reaction Status Date / Time No Known Allergies Allergy Verified 08/09/21 17:03 Home Medications Medication Instructions Recorded Confirmed Type labetalol 200 mg tablet 100 mg PO BID tab 03/21/20 08/09/21 History cholecalciferol (vitamin D3) 25 0 mcg PO HS 08/09/21 08/09/21 History mcg (1,000 unit) capsule (Vitamin D3) elderberry fruit 460 mg-elderberry 1 cap PO HS 08/09/21 08/09/21 History flower 115 mg capsule garlic 1,000 mg capsule (garlic 0 mg PO QAM 08/09/21 08/09/21 History oil) multivitamin with minerals 1 tab PO HS 08/09/21 08/09/21 History (Hair,Skin and Nails) Past Med/Surg History Medical History Diet controlled gestational diabetes mellitus (GDM), antepartum Eczema Fibroids History of chicken pox Surgical History History of open heart surgery ASD repair 1990 S/P wisdom tooth extraction Family History Mother Diabetes Hypertension Social History Smoking Status: Never smoker Hx Alcohol Use: No Hx Substance Use: No Preferred Language: Singaporean Communication Ability: Effective Metal Lather Required: No Beliefs That Will Affect Care: None marital status: marital status details: Pierre Kelly (36) [phone] Current Living Situation: Spouse Current Living Situation Comment: lives with spouse, daughter, dogs 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 Feels Safe at Home: Yes Assistive Devices: Glasses Review of Systems Review of Systems: As per HPI, all 10 systems reviewed, all other ROS negative Physical Exam Physical Exam: GENERAL: Slightly uncomfortable, obese, pleasant, no respiratory distress SKIN: Normal color, warm HEENT: Bespectacled, [place] palpebral conjunctivae, no ptosis, dry buccal mucosa NECK : Supple, short neck, no tenderness CHEST : CTA, no tenderness HEART : RRR, no obvious murmurs ABDOMEN: Some distention, RLQ tenderness EXTREMITIES : No LE swelling/tenderness, no other conspicuous deformities noted NEUROLOGIC : Coherent, no facial asymmetry, no other gross focality Results & Data Results & Data ([facility]) Vital Signs (Past 12 Hours) Vital Signs Temp Pulse Resp BP Pulse Ox 08/09/21 19:56 84 119/89 08/09/21 16:08 36.2 C L 96 H 20 166/115 H 98 Laboratory Results Laboratory Results WBC 20.20 K/uL (4.8-10.8) H 08/09/21 16:35 RBC 4.80 M/uL (4.2-5.4) 08/09/21 16:35 Hgb 14.1 g/dL (12.0-16.0) 08/09/21 16:35 Hct 41.1 % (37-47) 08/09/21 16:35 MCV 85.6 fL (80-100) 08/09/21 16:35 MCH 29.4 pg (25-34) 08/09/21 16:35 MCHC 34.3 g/dL (32-36) 08/09/21 16:35 RDW Std Deviation 40.6 fL (36.4-46.3) 08/09/21 16:35 RDW Coeff of [place] 13.0 % (11.5-14.5) 08/09/21 16:35 Plt Count 270 K/uL (130-400) 08/09/21 16:35 MPV 9.0 fL (7.4-10.4) 08/09/21 16:35 Immature Gran % (Auto) 0.4 % 08/09/21 16:35 Neut % (Auto) 83.5 % 08/09/21 16:35 Lymph % (Auto) 11.3 % 08/09/21 16:35 Clinch % (Auto) 4.0 % 08/09/21 16:35 Eos % (Auto) 0.8 % 08/09/21 16:35 Baso % (Auto) 0.0 % 08/09/21 16:35 Neut # (Auto) 16.84 K/uL (1.4-6.5) H 08/09/21 16:35 Lymph # (Auto) 2.29 K/uL (1.2-3.4) 08/09/21 16:35 Clinch # (Auto) 0.81 K/uL (0.11-0.59) H 08/09/21 16:35 Eos # (Auto) 0.17 K/uL (0-0.5) 08/09/21 16:35 Baso # (Auto) 0.01 K/uL (0-0.2) 08/09/21 16:35 Immature Gran # (Auto) 0.08 K/uL (0.00-0.02) H 08/09/21 16:35 Sodium 135 mmol/L (136-145) L 08/09/21 16:35 Potassium 3.7 mmol/L (3.5-5.1) 08/09/21 16:35 Chloride 101 mmol/L (98-107) 08/09/21 16:35 Carbon Dioxide 23 mmol/L (21-32) 08/09/21 16:35 Anion Gap 11 (3-11) 08/09/21 16:35 BUN 10 mg/dl (6-23) 08/09/21 16:35 Creatinine 0.52 mg/dl (0.6-1.2) L 08/09/21 16:35 Est Cr Clr Drug Dosing 142.7 ml/min 08/09/21 16:35 Est GFR ( Amer) 143.5 ml/min 08/09/21 16:35 Est GFR (Non-Af Amer) 123.8 ml/min 08/09/21 16:35 BUN/Creatinine Ratio 19.2 (10-20) 08/09/21 16:35 Glucose 111 mg/dl (70-99(Fasting)) H 08/09/21 16:35 Calcium 10.1 mg/dl (8.5-10.1) 08/09/21 16:35 Magnesium 1.5 mg/dl (1.7-2.4) L 08/09/21 16:35 Total Bilirubin 0.4 mg/dl (0.2-1.0) 08/09/21 16:35 AST 20 U/L (13-39) 08/09/21 16:35 ALT 24 U/L (7-52) 08/09/21 16:35 Alkaline Phosphatase 43 U/L (34-104) 08/09/21 16:35 Total Protein 7.7 gm/dl (6.0-8.3) 08/09/21 16:35 Albumin 4.6 gm/dl (3.4-5.0) 08/09/21 16:35 Globulin 3.1 gm/dl (2.5-4.0) 08/09/21 16:35 Albumin/Globulin Ratio 1.5 (0.9-2) 08/09/21 16:35 Lipase 7 U/L (11-82) L 08/09/21 16:35 HCG, Qual Negative (Negative) 08/09/21 16:35 Urine Color Yellow 08/09/21 17:45 Urine Appearance Clear (Clear) 08/09/21 17:45 Urine pH 7.0 (4.5-7.5) 08/09/21 17:45 Ur Specific [place] 1.017 (1.000-1.030) 08/09/21 17:45 Urine Protein Negative (Negative) 08/09/21 17:45 Urine Glucose (UA) Negative (Negative) 08/09/21 17:45 Urine Ketones Negative (Negative) 08/09/21 17:45 Urine Blood Negative (Negative) 08/09/21 17:45 Urine Nitrite Negative (Negative) 08/09/21 17:45 Urine Bilirubin Negative (Negative) 08/09/21 17:45 Urine Urobilinogen Negative (Negative) 08/09/21 17:45 Ur Leukocyte Esterase Negative (Negative) 08/09/21 17:45 Impressions Abdomen/Pelvis CT 08/09/21 16:[address] WITH IV CONTRAST CT DOSE: 583.26 mGy.cm HISTORY: Acute pain of the abdominal right lower quadrant RLQ TECHNIQUE: Multiaxial CT images of the abdomen and pelvis were performed following the IV administration of 95 cc of Optiray, A dose lowering technique was utilized adhering to the principles of ALARA. COMPARISON STUDY: CT abdomen and pelvis 03/01/2017 FINDINGS: The imaged inferior cardiac chambers are unremarkable. Clear lung bases. No pneumatosis or pneumoperitoneum. The spleen, pancreas, adrenal glands and liver appear unremarkable. Mild distention of the gallbladder. Patency of the hepatic and portal veins. Unremarkable kidneys. No hydronephrosis. Urinary bladder wall thickening with partial distention. Perivesicular inflammatory stranding. There is suggested arcuate morphology of the uterus. Follicular changes of the ovaries. Aorta and IVC are unremarkable. No adenopathy. No bowel obstruction or bowel wall thickening. Hyperattenuating material is noted within a few loops of small bowel within the abdominal right lower quadrant. Normal appendix. Tiny fat filled periumbilical hernia. Unremarkable soft tissues. No acute fracture. IMPRESSION: 1. No acute intra-abdominal or intrapelvic abnormality. 2. No bowel obstruction or bowel wall thickening. Normal appendix. ACT 112: Negative or not required by law. The above report was generated using voice recognition software. It may contain grammatical, syntax or spelling errors. Electronically signed by: Ramiro Winkler M.D. 08/09/2021 6:17 PM
[2021-08-09] MEDS ORDERED: ACETAMINOPHEN 325 MG TAB PO PRN (21:59)
[2021-08-09] MEDS ORDERED: LORazepam 2 MG/1 ML VIAL IV PRN (21:59)
[2021-08-09] MEDS ORDERED: PROMETHAZINE HCL 12.5 MG in SODIUM CHLORIDE 0.9% 50 ML IV PRN (21:59)
[2021-08-09] MEDS ORDERED: IBUPROFEN 200 MG TAB PO PRN (21:59)
[2021-08-09] MEDS ORDERED: KETOROLAC TROMETHAMINE 15 MG/ML VIAL IV PRN (21:59)
[2021-08-09] MEDS ORDERED: LACTATED RINGER'S 1,000 ML IV ONE (23:30)
[2021-08-10] MEDS: LABETALOL HCL 100 MG TAB PO SCH ×2 (01:19→08:35)
[2021-08-10 06:05] LABS: Basophils # (auto) 0.01 K/uL (0-0.2); Basophils % (auto) 0.1 %; Eosinophils # (auto) 0.14 K/uL (0-0.5); Eosinophils % (auto) 1.4 %; Hematocrit (blood only) 34.9 % (37-47); Hemoglobin 12.1 g/dL (12.0-16.0); Immature Granulocytes # (auto) 0.02 K/uL (0.00-0.02); Immature Granulocytes % (auto) 0.2 %; Lymphocytes # (auto) 2.19 K/uL (1.2-3.4); Lymphocytes % (auto) 21.3 %; Mean Corpuscular Hemoglobin 30.1 pg (25-34); Mean Corpuscular Hgb Conc 34.7 g/dL (32-36); Mean Corpuscular Volume 86.8 fL (80-100); Mean Platelet Volume 8.9 fL (7.4-10.4); Monocytes # (auto) 0.54 K/uL (0.11-0.59); Monocytes % (auto) 5.3 %; Neutrophils # (auto) 7.36 K/uL (1.4-6.5); Neutrophils % (auto) 71.7 %; Platelet Count 216 K/uL (130-400); RDW Standard Deviation 42.2 fL (36.4-46.3); Red Blood Count 4.02 M/uL (4.2-5.4); White Blood Count 10.26 K/uL (4.8-10.8)
[2021-08-10 06:37] LABS: BUN Creatinine Ratio 13.2 (10-20); Creatinine Clr Calc Pharmacy 139.8 ml/min; Est GFR (African American) 142.6 ml/min; Potassium 3.7 mmol/L (3.5-5.1)
[2021-08-10] MEDS ORDERED: ENOXAPARIN INJ 40 MG/0.4 ML SYR SQ SCH (09:00)
[2021-08-10 09:10] LABS: Estimated Average Glucose 111 mg/dl; Hemoglobin A1C 5.5 % (4.5-5.6)
--- NOTE | 2021-08-10 12:11 | Hospitalist Progress Note ---
Date of Service August 10, 2021 Assessment & Plan (1) RLQ abdominal pain: Plan: This is a 36-year-old female who has significant past medical history of gestational diabetes, history of ASD status post repair, HTN, past tobacco abuse who presented to ED on 08/09/2021 secondary to abdominal pain. Patient initially had leukocytosis on admission, CT abdomen pelvis unrevealing. Leukocytosis resolved today without intervention. Urinalysis negative. Right lower quadrant abdominal pain Pain seems to be improving, slightly worse after clear liquids Obtain right upper quadrant ultrasound -patient does have a family history of gallbladder disease Advance diet and see how she tolerates She had general surgery recommendation -have signed off If symptoms return consider repeat CT HTN continue labetolol Hypomagnesemia 1g mag sulfate x 1 now will d/c on oral mag will repeat in am if still hospitalized hx of Gestational DM Hyperglycemia rule out DM a1c 5.5 ASD status post surgery Past tobacco abuse DVT ppx: Lovenox Dispo: RUQ US ordered, will advance diet and re eval this afternoon FULL CODE PCP: SILVIA Kaiser Pt was seen and examind in collaboration with Dr. Diez, please see addendum Admission and Anticipated Discharge Date Admission Date: August 09, 2021 Subjective Patient was seen and examined in room 320. Follow-up right lower quadrant abdominal pain. She states right lower quadrant pain started yesterday morning. It came on all of a sudden and continued throughout the day. She described as, "crampy," and related to menstrual cramps. She had a period 2 weeks ago and is not due for her period. Pain was constant, made worse with movement, made better with rest and throughout the day yesterday got worse with radiation to her right flank. She has history of UTI and pyelonephritis in the past and that is why she came to ED. She did have one episode of nausea yesterday that resolved with some saltine crackers, but denies vomiting. She has prior history of GERD during pregnancies and feels this is not similar. She has had vaginal deliveries and no other abdominal surgeries in the past. She denies fever, chills, sweats, lightheadedness, dizziness, chest pain, shortness of breath, nausea, vomiting, dysuria, increased urgency or frequency with urination, melena, hematochezia. Her last bowel movement was yesterday and it was normal for her. She was unable to eat or drink much yesterday. Did try clear liquids for breakfast and she felt like her pain was starting again. Overall she feels much improved from yesterday, but was unable to tolerate breakfast. Review of Systems Review of Systems: All systems reviewed & are unremarkable except as noted in HPI & below Physical Exam Physical Exam: Gen: WD/WN, NAD, A&O x3 HEENT: Normocephalic, atraumatic, conjunctivae moist, sclerae anicteric, mucous membranes moist. Lung: Clear to Auscultation bilaterally, no wheezes/rales/rhonchi Heart: Regular rate, regular rhythm, no murmurs, rubs, or gallops Abdomen: Soft, NT, ND +BS x 4 Extremities: No edema Skin: Warm, no rash, negative turgor. Results & Data Results & Data ([facility]) Vital Signs (Past 12 Hours) Vital Signs Temp Pulse Resp BP Pulse Ox 08/10/21 07:46 36.6 C 54 L 20 145/90 H 98 Laboratory Results Short CBC 08/09/21 08/10/21 Range/Units 16:35 05:44 WBC 20.20 H 10.26 (4.8-10.8) K/uL Hgb 14.1 12.1 (12.0-16.0) g/dL Hct 41.1 34.9 L (37-47) % Plt Count 270 216 (130-400) K/uL BMP 08/09/21 08/10/21 16:35 05:44 Sodium 135 L 136 Potassium 3.7 3.7 Chloride 101 103 Carbon Dioxide 23 26 BUN 10 7 Creatinine 0.52 L 0.53 L Glucose 111 H 133 H Calcium 10.1 8.0 L D Liver Function 08/09/21 Range/Units 16:35 Total Bilirubin 0.4 (0.2-1.0) mg/dl AST 20 (13-39) U/L ALT 24 (7-52) U/L Alkaline Phosphatase 43 (34-104) U/L Albumin 4.6 (3.4-5.0) gm/dl Urine 08/09/21 Range/Units 17:45 Urine Color Yellow Urine Appearance Clear (Clear) Urine pH 7.0 (4.5-7.5) Ur Specific [place] 1.017 (1.000-1.030) Urine Protein Negative (Negative) Urine Glucose (UA) Negative (Negative) Diagnostic Findings Abdomen/Pelvis CT 08/09/21 16:[address] WITH IV CONTRAST CT DOSE: 583.26 mGy.cm HISTORY: Acute pain of the abdominal right lower quadrant RLQ TECHNIQUE: Multiaxial CT images of the abdomen and pelvis were performed following the IV administration of 95 cc of Optiray, A dose lowering technique was utilized adhering to the principles of ALARA. COMPARISON STUDY: CT abdomen and pelvis 03/01/2017 FINDINGS: The imaged inferior cardiac chambers are unremarkable. Clear lung bases. No pneumatosis or pneumoperitoneum. The spleen, pancreas, adrenal glands and liver appear unremarkable. Mild distention of the gallbladder. Patency of the hepatic and portal veins. Unremarkable kidneys. No hydronephrosis. Urinary bladder wall thickening with partial distention. Perivesicular inflammatory stranding. There is suggested arcuate morphology of the uterus. Follicular changes of the ovaries. Aorta and IVC are unremarkable. No adenopathy. No bowel obstruction or bowel wall thickening. Hyperattenuating material is noted within a few loops of small bowel within the abdominal right lower quadrant. Normal appendix. Tiny fat filled periumbilical hernia. Unremarkable soft tissues. No acute fracture. IMPRESSION: 1. No acute intra-abdominal or intrapelvic abnormality. 2. No bowel obstruction or bowel wall thickening. Normal appendix. ACT 112: Negative or not required by law. The above report was generated using voice recognition software. It may contain grammatical, syntax or spelling errors. Electronically signed by: Ramiro Winkler M.D. 08/09/2021 6:17 PM Medications Administered Current Inpatient Medications Acetaminophen (Acetaminophen 325 Mg Tab) 650 mg PO Q4H PRN PRN Reason: pain/fever Stop: 09/08/21 21:58 Enoxaparin Sodium (Enoxaparin Inj 40 Mg/0.4 Ml Syr) 40 mg SQ QAM ALEJO Stop: 09/09/21 08:59 Last Admin: 08/10/21 08:36 Dose: 40 mg Documented by: Promethazine HCl 12.5 mg/ (Sodium Chloride) 50.5 mls @ 202 mls/hr IV Q6H PRN PRN Reason: Nausea And Vomiting Stop: 09/08/21 21:58 Ibuprofen (Ibuprofen 200 Mg Tab) 200 mg PO Q6H PRN PRN Reason: Mild Pain Stop: 09/08/21 21:58 Ketorolac Tromethamine (Ketorolac Tromethamine 15 Mg/Ml Vial) 15 mg IV Q6H PRN PRN Reason: Pain Stop: 08/14/21 21:58 Labetalol HCl (Labetalol Hcl 100 Mg Tab) 100 mg PO BID ALEJO Stop: 09/08/21 23:34 Last Admin: 08/10/21 08:35 Dose: 100 mg Documented by: Lorazepam (Lorazepam 2 Mg/1 Ml Vial) 0.5 mg IV Q4H PRN PRN Reason: Anxiety Stop: 09/08/21 21:58
[2021-08-10] MEDS ORDERED: MAGNESIUM SULFATE / D5W 1 GM/100 ML BAG IV SCH (13:00)
--- NOTE | 2021-08-10 14:31 | Ultrasound Report ---
ABDOMINAL ULTRASOUND, RIGHT UPPER QUADRANT HISTORY: Right upper quadrant pain after eating.. COMPARISON: Abdomen and pelvis CT 08/09/2021. FINDINGS: Pancreas: The pancreas demonstrates a normal echotexture. Liver: The liver is echogenic consistent with fatty change. 17 cm in length. Gallbladder: No gallbladder wall thickening. No gallstones. CBD: 4 mm. Right kidney: No hydronephrosis. IMPRESSION: 1. Mild hepatic steatosis. 2. Normal gallbladder. No gallstones. ACT 112: Negative or not required by law. Electronically signed by: Adonay Jewell M.D. 08/10/2021 2:28 PM
--- NOTE | 2021-08-10 15:27 | Discharge Summary ---
Date of Service August 10, 2021 Admission HPI Per Admitting Provider History obtained from patient and records. Medical history significant for hypertension, gestational DM, ASD status post surgery, past tobacco abuse Last confinement January 2020 under Obstetrics service for term status post vaginal delivery. Patient woke up this morning with achy right lower quadrant pain somewhat worse with motion. Crampy in quality as per patient some nausea without emesis. No fever, no chills. No prior episodes. Not better with remedies taken at home. 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, [facility] Admission Exam Per Admitting Provider GENERAL: Slightly uncomfortable, obese, pleasant, no respiratory distress SKIN: Normal color, warm HEENT: Bespectacled, Abercrombie palpebral conjunctivae, no ptosis, dry buccal mucosa NECK : Supple, short neck, no tenderness CHEST : CTA, no tenderness HEART : RRR, no obvious murmurs ABDOMEN: Some distention, RLQ tenderness EXTREMITIES : No LE swelling/tenderness, no other conspicuous deformities noted NEUROLOGIC : Coherent, no facial asymmetry, no other gross focality Principal Diagnosis Abdominal pain Low Magnesium Discharge Exam Gen: WD/WN, NAD, A&O x3 HEENT: Normocephalic, atraumatic, conjunctivae moist, sclerae anicteric, mucous membranes moist. Lung: Clear to Auscultation bilaterally, no wheezes/rales/rhonchi Heart: Regular rate, regular rhythm, no murmurs, rubs, or gallops Abdomen: Soft, NT, ND +BS x 4 Extremities: No edema Skin: Warm, no rash, negative turgor. Discharge Data Allergies Allergy/AdvReac Type Severity Reaction Status Date / Time No Known Allergies Allergy Verified 08/09/21 17:03 Consultations 08/09/21 20:34 Consult General Surgery Stat 08/09/21 21:23 ED Decision to Admit Stat Ordered Studies Abdomen/Pelvis CT 08/09/21 16:[address] WITH IV CONTRAST CT DOSE: 583.26 mGy.cm HISTORY: Acute pain of the abdominal right lower quadrant RLQ TECHNIQUE: Multiaxial CT images of the abdomen and pelvis were performed following the IV administration of 95 cc of Optiray, A dose lowering technique was utilized adhering to the principles of ALARA. COMPARISON STUDY: CT abdomen and pelvis 03/01/2017 FINDINGS: The imaged inferior cardiac chambers are unremarkable. Clear lung bases. No pneumatosis or pneumoperitoneum. The spleen, pancreas, adrenal glands and liver appear unremarkable. Mild distention of the gallbladder. Patency of the hepatic and portal veins. Unremarkable kidneys. No hydronephrosis. Urinary bladder wall thickening with partial distention. Perivesicular inflammatory stranding. There is suggested arcuate morphology of the uterus. Follicular changes of the ovaries. Aorta and IVC are unremarkable. No adenopathy. No bowel obstruction or bowel wall thickening. Hyperattenuating material is noted within a few loops of small bowel within the abdominal right lower quadrant. Normal appendix. Tiny fat filled periumbilical hernia. Unremarkable soft tissues. No acute fracture. IMPRESSION: 1. No acute intra-abdominal or intrapelvic abnormality. 2. No bowel obstruction or bowel wall thickening. Normal appendix. ACT 112: Negative or not required by law. The above report was generated using voice recognition software. It may contain grammatical, syntax or spelling errors. Electronically signed by: Ramiro Winkler M.D. 08/09/2021 6:17 PM Abdomen Ultrasound 08/10/21 10:48 ABDOMINAL ULTRASOUND, RIGHT UPPER QUADRANT HISTORY: Right upper quadrant pain after eating.. COMPARISON: Abdomen and pelvis CT 08/09/2021. FINDINGS: Pancreas: The pancreas demonstrates a normal echotexture. Liver: The liver is echogenic consistent with fatty change. 17 cm in length. Gallbladder: No gallbladder wall thickening. No gallstones. CBD: 4 mm. Right kidney: No hydronephrosis. IMPRESSION: 1. Mild hepatic steatosis. 2. Normal gallbladder. No gallstones. ACT 112: Negative or not required by law. Electronically signed by: Adonay Jewell M.D. 08/10/2021 2:28 PM Hospital Course (1) RLQ abdominal pain: This is a 36-year-old female who has significant past medical history of gestational diabetes, history of ASD status post repair, HTN, past tobacco abuse who presented to ED on 08/09/2021 secondary to abdominal pain. On admission patient was found to have leukocytosis and uncontrolled right lower quadrant abdominal pain. CT abdomen pelvis was unrevealing for any acute pathology. She was seen in ED by general surgery who cleared patient for discharge; however, due to persistent pain she was uncomfortable returning to home. She was admitted for overnight observation. Her leukocytosis resolved on next day without intervention. She did receive gentle IV fluid. She was started on clear liquid diet and advance as tolerated. Her symptoms have mostly resolved although she does have slight discomfort to right lower quadrant with eating. She tolerated regular diet at lunch prior to discharge. Due to family history of gallbladder disease a right upper quadrant ultrasound was ordered which showed hepatic steatosis, but no cholelithiasis. Her LFTs and lipase were unremarkable. She did have low magnesium and this was replaced. She was also discharged on oral replacement. Unknown etiology of patient's abdominal pain, may be secondary to flatulence or constipation. Also be [facility] in etiology. She is encouraged to follow-up with [facility] in near future as outpatient. She is also encouraged to follow-up with PCP if symptoms do not resolve and to possibly establish with gastroenterology. On day of discharge her vitals are stable. She was tolerating a regular diet and ambulating without assistance. Her is at bedside and all questions were answered. She was educated if symptoms worsen, return or she develops fever, persistent nausea or vomiting or change in urinary habits to return to ER immediately. Pt was seen and examind in collaboration with Dr. Diez, please see addendum Total Time Total Time Spent Total Time Spent (In Minutes): 35 minutes Discharge Plan Discharge Items Patient Disposition: Home - Self-Care Reason For Visit: R ABD PAIN Discharge Diagnosis: Abdominal pain Low Magnesium Condition on Discharge: Good Activity: Resume your previous activity Lifting: Gradually increase as tolerated Bathing: No limitations Exercise/Sports: Gradually increase as tolerated Driving/Machine Use: Resume 1 day after discharge Weightbearing: Full weightbearing Non-emergency contact: Primary Care Provider Call non-emergency contact if: you have any medication questions, your symptoms worsen, your pain is not controlled, your pain is worsening, your pain is unusual for you, your pain is concerning for you, you have a fever and your temperature is above 101 Follow-up/Referrals: Sravanthi Ramon DO [Outside Practitioners] - (Date & Time 08/17/2021 12:30 PM Provider Sravanthi Ramon DO Department [facility] ) Diet: Regular and Low Fat Addtl Attending Provider Instructions: MEDICATION CHANGES: None SUMMARY OF TEST RESULTS: You were admitted to hospital for abdominal pain. A CT of your abdomen/pelvis was performed and negative for any acute finding/reason for your pain. Although we do not know the exact cause of your pain, we have ruled out any life threatening causes for your abdominal pain. You urinalysis was normal, along with your liver function tests. You had a US of your liver/gallbladder which showed fatty liver but no gall stones. Your magnesium was low and it was replaced. You were also prescribed magnesium supplement. PENDING TEST RESULTS: None RECOMMENDATIONS FOR FOLLOW-UP: Advance diet as tolerated. Recommend a low fat diet. Also recommend diet and weight loss due to elevated BMI and fatty liver. Please stay well hydrated drinking 60-80oz of non caffeinated beverages daily. You may take tylenol 500mg every 6 hours as needed for pain. Over the counter simethicone for gas pains. If pain worsens or returns please contact PCP or return to emergency room. Please monitor for any fever, vomiting, dark stool or change in urination. Recommend follow up with [facility] to determine if symptoms possibly related Fibroids. OTHER INSTRUCTIONS: Seek medical attention if you have: * temperature above 101 * chest pain or trouble breathing * abdominal pain, nausea, vomiting * diarrhea, dark stools or bloody stools * any unanswered questions or concerns Call 911 if symptoms are severe. Please take good care of yourself. It has been a pleasure taking care of you. Please take care of yourself. If you have any questions regarding your recent hospitalization please contact [facility] and request Cindy Moranist @ [phone]. Rafaela Paul PA-C Pending Studies at Discharge: No Stand-Alone Forms: My [facility], Work/School Release, Smoking Cessation Medications and DC Order Prescriptions: New magnesium oxide 400 mg magnesium tablet 400 mg PO BID 3 Days Qty: 6 RF: 0 Continued labetalol 200 mg tablet 100 mg PO BID RF: 0 garlic [garlic oil] 1,000 mg Capsule 0 mg PO QAM RF: 0 Hair,Skin and Nails Tablet 1 tab PO HS RF: 0 cholecalciferol (vitamin D3) [Vitamin D3] 25 mcg (1,000 unit) Capsule 0 mcg PO HS RF: 0 elderberry fruit and flower 460-115 mg Capsule 1 cap PO HS RF: 0 Discharge Orders: Discharge Order (Routine); Ordered 08/10/21 Ordered By: Rafaela Paul Admission Data Admit Date/Time: 08/09/21 21:57 Attending Provider: Adair Diez Admit Provider: Cliff King Primary Care Provider: Hallie Kaiser Other Providers: Cliff King ; Santos Barrow ; Rafaela Paul Other Interventions: Discharge Summary Assessment (RN) Last Done: 08/10/21 14:50 Supervising Physician Co-Signing Physician Notes Patient is seen and examined at bedside. Abdominal pain much improved this morning. Tolerating liquid diet. Denies any nausea, vomiting, chest pain, shortness of breath, dizziness, diarrhea. Offers no other complaints. On exam patient is obese, no apparent distress, normocephalic atraumatic, EOMI, normal breath sounds, clear to auscultation, S1-S2, no murmur, no pedal edema, abdomen soft, mild right upper quadrant, right lower quadrant and epigastric discomfort, normal bowel sounds, no guarding or rigidity, alert, awake, oriented, grossly no focal deficits. Patient is admitted for management of right sided abdominal pain, no unclear etiology. Likely hepatic steatosis. CT imaging showed no acute findings. Right upper quadrant ultrasound showed hepatic steatosis. Normal lipase, LFTs. Patient also informs having history of fibroid uterus. Appreciate surgery input. Pain is controlled. Agree with continuing magnesium supplements. Advance diet as tolerated. Advised to seek immediate medical attention if symptoms worsen upon discharge. Also advised patient to follow-up with [facility] for further evaluation of fibroid uterus. Low-fat diet. Minimize alcohol use. I personally reviewed the record. Patient is interviewed and examined at bedside. Patient's care is coordinated with Rafaela Paul PA-C. Please refer to the documentation above for details of patient's presentation and for discussion of other issues.
[2021-08-10] MEDS ORDERED: NON-FORMULARY MEDICATION (Multivitamin With Minerals [Hair,Skin And Nails] Tablet) PO SCH (21:00)
== END 2021-08-10 15:33 | disposition home or self-care (01) ==
LOC: ED 16:05 → 3E 16:05